=== PATIENT | female | born 1930 | race Caucasian/White ===

== ENCOUNTER 2017-05-10 22:02 | Inpatient (IN) | payer OTHER ==
[~2017-05-10] VITALS: Ht 162.6 cm; Wt 97.7 kg
[~2017-05-10 22:02] MED LIST: ACET-1311 PO; HMLI SC; HYDR25TA4 PO; INSUINJ4 SQ; LISI-792 PO; LORA-741 PO; MULT-513 PO; OXYC-57 PO; OXYC1CAP5 PO; PANT1TAB48 PO; REPA2TAB13 PO; SIMV40TA4 PO
[2017-05-10] MEDS ORDERED: SODIUM CHLORIDE 0.9% 1000ML 1,000 ML IV SCH (22:10)
[2017-05-10] MEDS ORDERED: NiCARDipine IV 25 MG in SODIUM CHLORIDE 0.9% 250ML 240 ML IV STA (22:10)
--- NOTE | 2017-05-10 22:32 | DIAGNOSTIC IMAGING REPORT ---
HEAD WITHOUT CONTRAST (CT) CLINICAL HISTORY: 86 years-old Female with Pt c/o AMS, HTN. Acute altered mental status with hypertension. TECHNIQUE: Multiple axial CT images of the head were obtained without contrast. A dose lowering technique was utilized adhering to the principles of ALARA. CT DOSE: 623.48 mGy.cm COMPARISON: None. FINDINGS: No acute intracranial hemorrhage, midline shift, mass, large territorial ischemia or abnormal extra-axial collection. Moderate atrophy with ex vacuo ventriculomegaly. Ill-defined areas of low attenuation within the periventricular white matter suggests chronic microvascular ischemic changes. The calvarium is intact. Large bilateral mastoid effusions are noted with complete opacification on the right. Large amount of fluid within the right middle ear cavity is noted. Paranasal sinuses are generally clear. Soft tissues are unremarkable. IMPRESSION: 1. Age-related findings without acute intracranial abnormality. 2. Large bilateral mastoid effusions, right greater than left with fluid also present within the right middle ear cavity. Correlate clinically to exclude otomastoiditis. The above report was generated using voice recognition software. It may contain grammatical, syntax or spelling errors. Electronically signed by: Gurvinder Vyas M.D. 05/10/2017 10:30 PM Dictated Date/Time: 05/10/2017 10:27 PM
[2017-05-10] MEDS ORDERED: PRLSR20 PO (22:43)
[2017-05-10] MEDS ORDERED: DOCU100C31 PO (22:43)
[2017-05-10] MEDS ORDERED: MCRK20 PO (22:43)
[2017-05-10] MEDS ORDERED: ASPI325T39 PO (22:43)
[2017-05-10] MEDS ORDERED: INSDGIPEN SC ×2 (22:43)
[2017-05-10] MEDS ORDERED: DTRSR4 PO (22:43)
[2017-05-10] MEDS ORDERED: FURO-85 PO (22:43)
[2017-05-10 22:49] LABS: BASO % 0.1 %; BASO ABS # 0.02 K/uL (0-0.2); COMPLETE YES; EOS % 0.5 %; HEMATOCRIT 41.4 % (37-47); IG% 0.4 %; LYMPH % 16.6 %; LYMPH ABS # 2.36 K/uL (1.2-3.4); MEAN CELL VOLUME 91.8 fL (80-100); MEAN CORPUSCULAR HEMOGLOBIN 30.6 pg (25-34); MEAN CORPUSCULAR HGB CONC 33.3 g/dl (32-36); MEAN PLATELET VOLUME 10.8 fL (7.4-10.4); MONO % 6.6 %; NEUT % 75.8 %; PLATELET COUNT 234 K/uL (130-400); RED BLOOD COUNT 4.51 M/uL (4.2-5.4)
[2017-05-10 23:03] LABS: INR 1.1 (0.9-1.1); PROTHROMBIN TIME (PATIENT) 11.3 SECONDS (9.0-12.0)
[2017-05-10 23:07] LABS: BLOOD UREA NITROGEN 23 mg/dl (7-18); BUN/CREATININE RATIO 17.2 (10-20); CALCIUM 8.8 mg/dl (8.5-10.1); CARBON DIOXIDE 26 mmol/L (21-32); CHLORIDE 102 mmol/L (98-107); CREATININE 1.36 mg/dl (0.60-1.20); GLUCOSE 203 mg/dl (70-99); POTASSIUM 4.9 mmol/L (3.5-5.1); SODIUM 134 mmol/L (136-145)
[2017-05-10 23:13] LABS: CKMB/CK RATIO 1.7 (0-3.0)
[2017-05-10] MEDS ORDERED: PIPERACILLIN/TAZOBACTAM 4.5 GM/100ML D5W IV STA (23:14)
[2017-05-10] MEDS ORDERED: LEVAQUIN 750MG / 150ML D5W IV STA (23:14)
--- NOTE | 2017-05-10 23:25 | EMERGENCY ROOM VISIT NOTE ---
History Report prepared by Prema: Concha Tuttle Under the Supervision of: Dr. Emiliano Espitia M.D. First contact with patient: 22:07 Chief Complaint: ALTERED MENTAL STATUS Stated Complaint: ALTERED MENTAL STATUS, CONFUSION, HEADACHE Nursing Triage Summary: patient brought in by ems patient found at 1630 with severe ROWLEY and confusion patient had worsening symptoms at 1830 History of Present Illness The patient is a 86 year old female who presents to the Emergency Room with complaints of a worsening altered mental status. She was brought to the ED via EMS. Her family reports she has been confused since 1529 today. Around 0, she started complaining of a severe headache. Around 1829, her symptoms worsened , so her family called EMS. Additional information is unable to be obtained secondary to patients current condition. Source of History: patient, family, EMS History Limited By: AMS Onset: 1530 this evening Position: other (global) Timing: worsening Associated Symptoms: + headache Review of Systems See HPI for pertinent positives & negatives. A total of 10 systems reviewed and were otherwise negative. Past Medical & Surgical Medical Problems: (1) Benign hypertension (2) Cholecystectomy (3) Chronic congestive heart failure (4) Depression (5) Diabetes mellitus (6) Hyperlipidemia (7) Myocardial infarction (8) renal disease Social History Smoking Status: Never Smoker Alcohol Use: none Drug Use: none Marital Status: Housing Status: lives alone Occupation Status: retired Current/Historical Medications Scheduled Aspirin (Aspirin Ec), 325 MG PO DAILY Docusate Sodium (Docusate Sodium), 100 MG PO BID Insulin Glargine (Lantus Solostar), 16 UNITS SC QAM Insulin Glargine (Lantus Solostar), 18 UNITS SC QPM Lisinopril (Zestril), 20 MG PO DAILY Multivitamins/Minerals (Mvi With Minerals), 1 TAB PO DAILY Omeprazole (Prilosec), 20 MG PO DAILY Potassium Chloride (Klor-Con M20), 20 MEQ PO DAILY Repaglinide (Prandin), 4 MG PO AC Simvastatin (Zocor), 40 MG PO QPM Tolterodine Tartrate (Detrol LA), 4 MG PO DAILY Scheduled PRN Acetaminophen (Tylenol), 650 MG PO Q4H PRN Furosemide (Lasix), 20 MG PO DAILY PRN for PRN Lorazepam (Ativan), 0.5 MG PO Q6H PRN Allergies Coded Allergies: No Known Allergies (Verified , 01/21/13) Physical Exam Vital Signs Date Time Temp Pulse Resp B/P (MAP) Pulse Ox O2 Delivery O2 Flow Rate FiO2 05/10/17 23:33 109 18 145/67 93 Room Air 05/10/17 22:46 173/82 05/10/17 22:36 94 Room Air 05/10/17 22:33 36.8 105 18 202/98 93 Room Air 05/10/17 22:24 102 Physical Exam GENERAL: Patient is a healthy-appearing well-nourished 86 year old female HEAD: Normocephalic atraumatic EYES: Ocular movements intact pupils equal and react to light OROPHARYNX mucous membranes are moist no exudates present no erythema or edema present NECK: Supple no nuchal rigidity CHEST: Good equal expansion LUNGS: Clear and equal to auscultation CARDIAC: Normal S1 and S2 ABDOMEN: Soft nontender no guarding BACK: No CVA tenderness EXTREMITIES: No pain upon palpation normal muscle strength in all groups no clubbing cyanosis or edema NEURO: Patient is confused, garbles words, only follows commands after multiple directions. Cranial Nerves 2-12 grossly intact Medical Decision & Procedures ER Provider Diagnostic Interpretation: Radiology results as stated below per my review and interpretation: CHEST X-RAY, 1 VIEW Hazy opacity at right lower lung base. No pneumothorax. No evidence of congestion. Laboratory Results Test 05/10/17 22:31 05/10/17 22:37 05/10/17 23:20 Bedside Prothrombin Time INR 1.0 (0.9-1.1) Prothrombin Time 11.3 SECONDS (9.0-12.0) Prothromb Time International Ratio 1.1 (0.9-1.1) Activated Partial Thromboplast Time 26.1 SECONDS (21.0-31.0) Partial Thromboplastin Ratio 1.0 Total Creatine Kinase 52 U/L (26-192) Creatine Kinase MB 0.9 ng/ml (0.5-3.6) Creatine Kinase MB Ratio 1.7 (0-3.0) Troponin I < 0.015 ng/ml (0-0.045) Thyroid Stimulating Hormone (TSH) 1.450 uIu/ml (0.300-4.500) Lyme Disease IgG Antibody NEG (NEG) Lyme Disease IgM Antibody NEG (NEG) Urine Color YELLOW Urine Appearance CLEAR (CLEAR) Urine pH 8.0 (4.5-7.5) Urine Specific [place] 1.008 (1.000-1.030) Urine Protein NEG (NEG) Urine Glucose (UA) NEG (NEG) Urine Ketones NEG (NEG) Urine Occult Blood NEG (NEG) Urine Nitrite NEG (NEG) Urine Bilirubin NEG (NEG) Urine Urobilinogen NEG (NEG) Urine Leukocyte Esterase NEG (NEG) Labs reviewed by ED physician. Medications Administered Medications (Trade) Dose Ordered Sig/[place] Route Start Time Stop Time Status Last Admin Dose Admin Sodium Chloride 1,000 ml @ 50 mls/hr Q20H IV 05/10/17 22:10 05/11/17 01:43 DC 05/10/17 22:54 50 MLS/HR Nicardipine HCl 25 mg/Sodium Chloride 250 ml @ 0 mls/hr Q0M STAT IV 05/10/17 22:10 05/10/17 22:11 DC 05/10/17 22:57 5 MLS/HR Piperacillin Sod/ Tazobactam Sod (Zosyn Iv) 4.5 gm NOW STAT IV 05/10/17 23:14 05/10/17 23:15 DC 05/11/17 00:51 4.5 GM Levofloxacin (Levaquin / D5W) 750 mg NOW STAT IV 05/10/17 23:14 05/10/17 23:15 DC 05/11/17 00:51 750 MG ECG Indication: altered mental status Rate (beats per minute): 102 Rhythm: sinus tachycardia Findings: no acute ischemic change, no ectopy ED Course 2204: Past medical records reviewed. The patient was evaluated in room C2. A complete history and physical examination was performed. 2210: Nicardipine HCl 25 mg/NSS 250 ml @ 0 mls/hr IV, NSS 1000 ml @ 25 mls/hr IV. 2314: Levaquin 750 mg IV, Zosyn 4.5 gm IV. 2326: I discussed the patients case with Dr. Vega, [facility] Hospitalist. The patient will be further evaluated. Medical Decision Prior records/ancillary studies reviewed. Triage Nursing notes reviewed. Additional history obtained from the patients family. The patient's history was concerning for abdominal pain. Differential diagnosis: Etiologies such as appendicitis, diverticulitis, PUD, biliary pathology, UTI, pancreatitis, obstruction, mesenteric ischemia, aortic pathology, infections, inflammatory bowel disease, renal colic, as well as others were entertained. This is an 86-year-old female who presents emergency department acutely confused. Her blood pressures grossly elevated. For this reason the patient was started on a nicardipine drip. Repeat examination revealed much improvement the patient's symptoms. The patient was sent for CAT scan of the head which did not show any evidence of acute process. There is concern over odomastoiditis however there is no pain to palpation to the patient's ears jaw or skull. I did discuss the case with the hospitalist service who agreed to admit the patient. Medication Reconcilliation Current Medication List: was personally reviewed by me Blood Pressure Screening Patient's blood pressure: Elevated blood pressure The patients elevated blood pressure will be further evaluated by the hospital medicine team Consults Time Called: 2321 Consulting Physician: Stacie Walker Hospitalist Returned Call: [phone] I discussed the patients case with Stacie Walker. The patient will be further evaluated. Impression Primary Impression: Altered mental status Additional Impression: Hypertensive emergency Scribe Attestation The scribe's documentation has been prepared under my direction and personally reviewed by me in its entirety. I confirm that the note above accurately reflects all work, treatment, procedures, and medical decision making performed by me. Departure Information Dispostion Being Evaluated By Hospitalist Referrals Harjit Adler M.D. (PCP) Patient Instructions My [facility] Problem Qualifiers Primary Impression: Altered mental status Altered mental status type: unspecified Qualified Codes: R41.82 - Altered mental status, unspecified
--- NOTE | 2017-05-10 23:42 | History and Physical ---
History & Physical Date & Time of Service: May 10, 2017 at 23:42 Chief Complaint: Altered Mental Status, Confusion, Headache Primary Care Physician: Harjit Adler M.D. History of Present Illness Source: patient, family, hospital records Patient is an 86 Yr female with PMH of DM II, HLP, CKD III, PUD S/P partial gastrectomy in , HTN, depression and Atypical Psychosis as per records presents with history of altered mental status. History is limited secondary to patient's mental status. As per the patient's son and ED staff, patient was noticed to be confused at around 3pm today. Patient complained of severe headache and she took Ibuprofen which helped with headache as per patient's son. Later, she seemed to be more confused and also complained of neck pain. Patient's son reports that he checked blood sugar and it was 259. She had a UTI 1 week ago and completed antibiotics as per family. No known history of head trauma, fall, LOC, Insect bite, fever, chills, nausea, vomiting, abd pain, diarrhea , no recent travel, change in meds. Currently while in ED patient continues to be confused but follows simple commands and is oriented to person. She was found to have Hypertensive Urgency, Tachycardia, leukocytosis and complains of neck pain but there is no neck stiffness on exam. CT head showed large bilateral mastoid effusions, R>L and fluid in right middle ear cavity suggestive of possible otomastoiditis. Past Medical/Surgical History Medical Problems: (1) Benign hypertension Status: Chronic (2) Cholecystectomy Status: Resolved (3) Chronic congestive heart failure Status: Chronic (4) Depression Status: Chronic (5) Diabetes mellitus Status: Chronic (6) Hyperlipidemia Status: Chronic (7) Myocardial infarction Status: Chronic (8) renal disease Status: Chronic Family History could not be obtained secondary to encephalopathy Social History Smoking Status: Never Smoker Alcohol Use: none Drug Use: none Marital Status: Occupational Status: retired Multi-Drug Resistant Organisms History of MDRO: No Allergies Coded Allergies: No Known Allergies (Verified , 01/21/13) Home Medications Scheduled Aspirin (Aspirin Ec), 325 MG PO DAILY Docusate Sodium (Docusate Sodium), 100 MG PO BID Insulin Glargine (Lantus Solostar), 16 UNITS SC QAM Insulin Glargine (Lantus Solostar), 18 UNITS SC QPM Lisinopril (Zestril), 20 MG PO DAILY Multivitamins/Minerals (Mvi With Minerals), 1 TAB PO DAILY Omeprazole (Prilosec), 20 MG PO DAILY Potassium Chloride (Klor-Con M20), 20 MEQ PO DAILY Repaglinide (Prandin), 4 MG PO AC Simvastatin (Zocor), 40 MG PO QPM Tolterodine Tartrate (Detrol LA), 4 MG PO DAILY Scheduled PRN Acetaminophen (Tylenol), 650 MG PO Q4H PRN Furosemide (Lasix), 20 MG PO DAILY PRN for PRN Lorazepam (Ativan), 0.5 MG PO Q6H PRN Review of Systems could not be obtained secondary to encephalopathy Physical Exam Vital Signs Date Time Temp Pulse Resp B/P (MAP) Pulse Ox O2 Delivery O2 Flow Rate FiO2 05/10/17 23:33 109 18 145/67 93 Room Air 05/10/17 22:46 173/82 05/10/17 22:36 94 Room Air 05/10/17 22:33 36.8 105 18 202/98 93 Room Air 05/10/17 22:24 102 General Appearance: WD/WN, no apparent distress, + pertinent finding (Confused , complains of neck pain, follows simple commands) Head: normocephalic, atraumatic Eyes: normal inspection, PERRL, EOMI ENT: hearing grossly normal Neck: supple, trachea midline, + pertinent finding (No neck stiffness) Respiratory/Chest: chest non-tender, lungs clear, no respiratory distress, no accessory muscle use, + decreased breath sounds Cardiovascular: regular rate, rhythm, no murmur, + tachycardia, + pertinent finding (1+ b/l edema) Abdomen/GI: normal bowel sounds, non tender, soft Back: normal inspection Extremities/Musculoskelatal: normal inspection, + pertinent finding (1+ b/l edema in stockings) Neurologic/Psych: alert, + pertinent finding (moves all extremities, grossly no focal deficits, but exam is limited secondary to encepalopathy, oriented only to person) Skin: normal color, warm/dry Diagnostics Laboratory Results Results Past 24 Hours Test 05/10/17 22:28 05/10/17 22:31 05/10/17 22:37 05/10/17 23:20 Range/Units Bedside Glucose 194 70-90 mg/dl Bedside Prothrombin Time INR 1.0 0.9-1.1 White Blood Count 14.20 4.8-10.8 K/uL Red Blood Count 4.51 4.2-5.4 M/uL Hemoglobin 13.8 12.0-16.0 g/dL Hematocrit 41.4 37-47 % Mean Corpuscular Volume 91.8 80-100 fL Mean Corpuscular Hemoglobin 30.6 25-34 pg Mean Corpuscular Hemoglobin Concent 33.3 32-36 g/dl Platelet Count 234 130-400 K/uL Mean Platelet Volume 10.8 7.4-10.4 fL Neutrophils (%) (Auto) 75.8 % Lymphocytes (%) (Auto) 16.6 % Monocytes (%) (Auto) 6.6 % Eosinophils (%) (Auto) 0.5 % Basophils (%) (Auto) 0.1 % Neutrophils # (Auto) 10.75 1.4-6.5 K/uL Lymphocytes # (Auto) 2.36 1.2-3.4 K/uL Monocytes # (Auto) 0.94 0.11-0.59 K/uL Eosinophils # (Auto) 0.07 0-0.5 K/uL Basophils # (Auto) 0.02 0-0.2 K/uL RDW Standard Deviation 41.0 36.4-46.3 fL RDW Coefficient of Variation 12.1 11.5-14.5 % Immature Granulocyte % (Auto) 0.4 % Immature Granulocyte # (Auto) 0.06 0.00-0.02 K/uL Prothrombin Time 11.3 9.0-12.0 SECONDS Prothromb Time International Ratio 1.1 0.9-1.1 Activated Partial Thromboplast Time 26.1 21.0-31.0 SECONDS Partial Thromboplastin Ratio 1.0 Sodium Level 134 136-145 mmol/L Potassium Level 4.9 3.5-5.1 mmol/L Chloride Level 102 98-107 mmol/L Carbon Dioxide Level 26 21-32 mmol/L Anion Gap 6.0 3-11 mmol/L Blood Urea Nitrogen 23 7-18 mg/dl Creatinine 1.36 0.60-1.20 mg/dl Est Creatinine Clear Calc Drug Dose 34.0 ml/min Estimated GFR () 40.5 Estimated GFR (Non- 34.9 BUN/Creatinine Ratio 17.2 10-20 Random Glucose 203 70-99 mg/dl Calcium Level 8.8 8.5-10.1 mg/dl Total Creatine Kinase 52 26-192 U/L Creatine Kinase MB 0.9 0.5-3.6 ng/ml Creatine Kinase MB Ratio 1.7 0-3.0 Troponin I < 0.015 0-0.045 ng/ml Microbiology Results 05/10/17 Blood Culture, Ordered Pending 05/10/17 Blood Culture, Ordered Pending Diagnostic Radiology CT head: 1. Age-related findings without acute intracranial abnormality. 2. Large bilateral mastoid effusions, right greater than left with fluid also present within the right middle ear cavity. Correlate clinically to exclude otomastoiditis. EKG EKG: Sinus Tachycardia, 1st degree AV block Impression Assessment and Plan Encephalopathy: Unclear etiology. Presented with confusion, leukocytosis, headache and neck pain DD:Meningitis/encephalitis/drug induced/ ? Sepsis/H/O Psychosis/ Seizure CT head: showed possible otomastoiditis. Will start on broad spectrum IV antibiotics/antiviral check MRI head, EEG Neuro checks Will consulted Neurology May need LP if clinically warranted Will hold Lorazepam and Detrol for now Blood cultures UA: normal Lyme negative check TSH, B12 Hypertensive Urgency: Treated with Nicardipine ggt in ED BP improved Continue lisinopril monitor DM II Will hold oral diabetic meds Last A1c:6.3 on 05/03/17 ISS, basal Insulin, Accu checks, Diabetic diet HLP: continue zocor CKD III: Cr:1.36 at baseline Monitor renal function H/O PUD S/P partial gastrectomy in 1970s continue PPI H/O Depression and Atypical Psychosis Hold Lorazepam secondary to AMS Overactive Bladder; Hold Detrol for now DVT Px: SCDs for now Code Status: Full Code as per my discussion with patient's son
[2017-05-10 23:43] LABS: URINE APPEARANCE CLEAR (CLEAR); URINE BILIRUBIN NEG (NEG); URINE COLOR YELLOW; URINE NITRITE NEG (NEG); URINE SPECIFIC GRAVITY 1.008 (1.000-1.030); UROBILINOGEN NEG (NEG); ZZUR CULT IF INDIC CLEAN CATCH NO
[2017-05-10 23:49] LABS: MANUAL MICROSCOPIC REQUIRED? NO; REVIEW REQ? NO
[2017-05-11] VITALS (7 sets, daily range): BP systolic 139–166; BP diastolic 78–84; PULSE 80–122; TEMP 36.6–37.1; O2SAT 92–96; Ht 162.6 cm; Wt 97.7 kg
[2017-05-11] MEDS ORDERED: GLUCOSE 40% GEL 15 GM TUBE PO PRN (00:30)
[2017-05-11] MEDS ORDERED: GLUCOSE 10 TABS/TUBE PO PRN (00:30)
[2017-05-11] MEDS ORDERED: DEXTROSE 50% 50 ML SYR IV PRN (00:30)
[2017-05-11] MEDS ORDERED: GLUCAGON FOR INJ 1 MG VIAL SQ PRN (00:30)
[2017-05-11] MEDS ORDERED: ONDANSETRON INJ 2 MG/ML 2 ML VIAL IV PRN (00:30)
[2017-05-11] MEDS ORDERED: LABETALOL HCL IV 5 MG/ML 20ML IV PRN (00:30)
[2017-05-11] MEDS ORDERED: VANCOMYCIN CONSULT ACTIVE PRN (01:03)
[2017-05-11] MEDS ORDERED: PIPERACILL/TAZOBAC CONSULT ACTIVE PRN (01:15)
[2017-05-11 01:25] LABS: LYME DISEASE AB IGG NEG (NEG); LYME DISEASE AB IGM NEG (NEG)
[2017-05-11] MEDS ORDERED: VANCOMYCIN INJ 2,250 MG in SODIUM CHLORIDE 0.9% 500ML 500 ML IV SCH (02:00)
[2017-05-11] MEDS: SODIUM CHLORIDE 0.9% 1000ML 1,000 ML IV SCH (02:38)
[2017-05-11] MEDS ORDERED: AMPICILLIN PHARMACY CONSULT IN PROGRESS PRN (02:45)
[2017-05-11] MEDS ORDERED: ACYCLOVIR CONSULT ACTIVE PRN (03:00)
[2017-05-11] MEDS: CEFTRIAXONE SOD INJ 2000 MG in DEXTROSE 5% 50ML IV SCH ×2 (03:05→17:53)
[2017-05-11] MEDS: AMPICILLIN IV 2,000 MG in SODIUM CHLOR 0.9% AD-VAN 100ML 100 ML IV SCH ×5 (04:01→22:18)
[2017-05-11] MEDS ORDERED: PIPERACILL/TAZOBAC IV 4.5 GM in DEXTROSE 5% 100ML IV SCH (06:00)
[2017-05-11] MEDS: ACYCLOVIR SOD INJ 550 MG in DEXTROSE 5% 100ML 100 ML IV SCH ×2 (06:20→17:53)
--- NOTE | 2017-05-11 06:35 | DIAGNOSTIC IMAGING REPORT ---
CHEST ONE VIEW PORTABLE CLINICAL HISTORY: Stroke. COMPARISON STUDY: Chest radiograph March 16, 2013. FINDINGS: Right shoulder arthroplasty is noted. There is no pneumothorax. Moderate cardiomegaly is unchanged. There is no evidence of pulmonary edema. Mild right basilar opacity is present. Apparent hazy left basilar opacity is unchanged. IMPRESSION: 1. Mild right basilar opacity which favors atelectasis although consolidation could appear similar. 2. Stable cardiomegaly without evidence of pulmonary edema. Electronically signed by: Shar Mayes M.D. 05/11/2017 6:34 AM Dictated Date/Time: 05/11/2017 6:33 AM
[2017-05-11] MEDS: ASPIRIN 325 MG ECTAB PO SCH (07:58)
[2017-05-11] MEDS: LISINOPRIL 20 MG TAB PO SCH (07:59)
[2017-05-11] MEDS: PANTOprazole SOD 40 MG TAB PO SCH (07:59)
[2017-05-11] MEDS: DOCUSATE SODIUM 100 MG CAP PO SCH ×2 (07:59→19:34)
[2017-05-11] MEDS: INSULIN ASPART 100 UNITS/ML 3 ML PEN SC SCH ×4 (08:01→20:33)
[2017-05-11] MEDS: INSULIN GLARGINE SOLOSTAR 100 UNITS/ML 3 ML PEN SC SCH ×2 (08:05→20:33)
--- NOTE | 2017-05-11 10:43 | Pharmacy Progress Note ---
Pharmacy Antibiotic Consult Date of Service: May 11, 2017. Pharmacy Dosing Scope Pharmacy is consulted to initiate Vancomycin, ampicillin, ceftriaxone and acyclovir IV empiric dosing therapy for meningitis, order appropriate labs and adjust drug dose/frequency. Subjective The patient is a 86 year old female admitted on May 11, 2017 at 00:23. Presented to the ED with altered mental status, confusion and severe headache. Objective Height (Feet): 5 Height (Inches): 4.00 Weight (Kilograms): 95.500 Lab Results (24hrs): Test 05/10/17 22:28 05/10/17 22:31 05/10/17 22:37 05/10/17 23:20 Bedside Glucose 194 mg/dl (70-90) Bedside Prothrombin Time INR 1.0 (0.9-1.1) White Blood Count 14.20 K/uL (4.8-10.8) Red Blood Count 4.51 M/uL (4.2-5.4) Hemoglobin 13.8 g/dL (12.0-16.0) Hematocrit 41.4 % (37-47) Mean Corpuscular Volume 91.8 fL (80-100) Mean Corpuscular Hemoglobin 30.6 pg (25-34) Mean Corpuscular Hemoglobin Concent 33.3 g/dl (32-36) Platelet Count 234 K/uL (130-400) Mean Platelet Volume 10.8 fL (7.4-10.4) Neutrophils (%) (Auto) 75.8 % Lymphocytes (%) (Auto) 16.6 % Monocytes (%) (Auto) 6.6 % Eosinophils (%) (Auto) 0.5 % Basophils (%) (Auto) 0.1 % Neutrophils # (Auto) 10.75 K/uL (1.4-6.5) Lymphocytes # (Auto) 2.36 K/uL (1.2-3.4) Monocytes # (Auto) 0.94 K/uL (0.11-0.59) Eosinophils # (Auto) 0.07 K/uL (0-0.5) Basophils # (Auto) 0.02 K/uL (0-0.2) RDW Standard Deviation 41.0 fL (36.4-46.3) RDW Coefficient of Variation 12.1 % (11.5-14.5) Immature Granulocyte % (Auto) 0.4 % Immature Granulocyte # (Auto) 0.06 K/uL (0.00-0.02) Prothrombin Time 11.3 SECONDS (9.0-12.0) Prothromb Time International Ratio 1.1 (0.9-1.1) Activated Partial Thromboplast Time 26.1 SECONDS (21.0-31.0) Partial Thromboplastin Ratio 1.0 Sodium Level 134 mmol/L (136-145) Potassium Level 4.9 mmol/L (3.5-5.1) Chloride Level 102 mmol/L (98-107) Carbon Dioxide Level 26 mmol/L (21-32) Anion Gap 6.0 mmol/L (3-11) Blood Urea Nitrogen 23 mg/dl (7-18) Creatinine 1.36 mg/dl (0.60-1.20) Est Creatinine Clear Calc Drug Dose 34.0 ml/min Estimated GFR () 40.5 Estimated GFR (Non- 34.9 BUN/Creatinine Ratio 17.2 (10-20) Random Glucose 203 mg/dl (70-99) Calcium Level 8.8 mg/dl (8.5-10.1) Total Creatine Kinase 52 U/L (26-192) Creatine Kinase MB 0.9 ng/ml (0.5-3.6) Creatine Kinase MB Ratio 1.7 (0-3.0) Troponin I < 0.015 ng/ml (0-0.045) Thyroid Stimulating Hormone (TSH) 1.450 uIu/ml (0.300-4.500) Lyme Disease IgG Antibody NEG (NEG) Lyme Disease IgM Antibody NEG (NEG) Urine Color YELLOW Urine Appearance CLEAR (CLEAR) Urine pH 8.0 (4.5-7.5) Urine Specific [place] 1.008 (1.000-1.030) Urine Protein NEG (NEG) Urine Glucose (UA) NEG (NEG) Urine Ketones NEG (NEG) Urine Occult Blood NEG (NEG) Urine Nitrite NEG (NEG) Urine Bilirubin NEG (NEG) Urine Urobilinogen NEG (NEG) Urine Leukocyte Esterase NEG (NEG) Test 05/11/17 06:11 05/11/17 06:44 Vitamin B12 Level 385 pg/mL (211-911) Bedside Glucose 122 mg/dl (70-90) Micro Results: Item Value Date Time Blood Culture Received 05/11/17 0032 Blood Pending Blood Culture Received 05/11/17 0023 Blood Pending Recent Pertinent Medications Item Value Date Time Acyclovir Sodium 111 ml @ 100 mls/hr 05/11/17 0600 550 mg/Dextrose Q12H/IV 05/11/17 0620 Ampicillin Sodium 108 ml @ 216 mls/hr 05/11/17 0400 2000 mg/Sodium Q6H/IV 05/11/17 0805 Chloride Ceftriaxone 70 ml @ 140 mls/hr 05/11/17 0300 Sodium 2000 mg/ Q12H/IV 05/11/17 0305 Dextrose Vancomycin HCl 545 ml @ 200 mls/hr 05/11/17 0200 2250 mg/Sodium TODAY@0200/IV 05/11/17 0239 Chloride Levofloxacin 750 mg 05/10/17 2314 (Levaquin / D5W) NOW STAT/IV 05/11/17 0051 Piperacillin Sod/ 4.5 gm 05/10/17 2314 Tazobactam Sod NOW STAT/IV 05/11/17 0051 (Zosyn Iv) Assessment & Plan Duration of therapy is 48hours for empiric treatment of possible meningitis. Vancomycin Loading dose: 2250 mg IV (22.6 mg/kg) X 1 dose then: * Vancomycin 1500 mg IV (15mg/kg) every 24 hours. * Goal peak level estimate: between 30 - 40 mcg/mL. * Goal trough level estimate: between 15 - 20 mcg/mL. * No levels ordered at this time. * Vanco trough level will need to be ordered if therapy is extended. Ampicillin 2 gm IV q 6 hours Rocephin 2gm IV q 12 hours Acyclovir 550mg IV q 12 hours. * Dosing is based on IBW and a CrCl of 38 ml/min Pharmacy will continue to follow and will adjust dose/frequency as necessary. Thank you
--- NOTE | 2017-05-11 11:38 | EEG Procedure Note ---
EEG Procedure Note Date of Service May 11, 2017. Start / End Times Start Time: 8:03 AM End Time: 8:[address] Peraza History This is a 86-year-old female with altered mental status and confusion. EEG for further evaluation of possible seizure etiology. Home Medication List Scheduled Aspirin (Aspirin Ec), 325 MG PO DAILY Docusate Sodium (Docusate Sodium), 100 MG PO BID Insulin Glargine (Lantus Solostar), 16 UNITS SC QAM Insulin Glargine (Lantus Solostar), 18 UNITS SC QPM Lisinopril (Zestril), 20 MG PO DAILY Multivitamins/Minerals (Mvi With Minerals), 1 TAB PO DAILY Omeprazole (Prilosec), 20 MG PO DAILY Potassium Chloride (Klor-Con M20), 20 MEQ PO DAILY Repaglinide (Prandin), 4 MG PO AC Simvastatin (Zocor), 40 MG PO QPM Tolterodine Tartrate (Detrol LA), 4 MG PO DAILY Scheduled PRN Acetaminophen (Tylenol), 650 MG PO Q4H PRN Furosemide (Lasix), 20 MG PO DAILY PRN for PRN Lorazepam (Ativan), 0.5 MG PO Q6H PRN Inpatient Medication List Current Inpatient Medications Medications (Trade) Dose Ordered Sig/Tawny Route Start Time Stop Time Status Last Admin Dose Admin Sodium Chloride 1,000 ml @ 50 mls/hr Q20H IV 05/11/17 01:43 06/10/17 01:42 05/11/17 02:38 50 MLS/HR Acetaminophen (Tylenol Tab) 650 mg Q4H PRN PO 05/11/17 00:30 06/10/17 00:29 Ondansetron HCl (Zofran Inj) 4 mg Q6H PRN IV 05/11/17 00:30 06/10/17 00:29 Insulin Glargine (Lantus Solostar Pen) 5 units Q12 SC 05/11/17 09:00 06/10/17 08:59 05/11/17 08:05 5 UNITS Insulin Aspart (novoLOG ASPART) SLIDING SCALE If C... ACHS SC 05/11/17 07:00 06/10/17 06:59 Glucose (Glucose 40% Gel) 15-30 GRAMS 15 GRAMS... UD PRN PO 05/11/17 00:30 06/10/17 00:29 Glucose (Glucose Chew Tab) 4-8 Tablets 4 Tabl... UD PRN PO 05/11/17 00:30 06/10/17 00:29 Dextrose (Dextrose 50% 50ML Syringe) 25-50ML OF 50% DW IV FOR... UD PRN IV 05/11/17 00:30 06/10/17 00:29 Glucagon (Glucagon Inj) 1 mg UD PRN SQ 05/11/17 00:30 06/10/17 00:29 Labetalol HCl (Normodyne IV) 10 mg Q6H PRN IV 05/11/17 00:30 06/10/17 00:29 Aspirin (Ecotrin Tab) 325 mg DAILY PO 05/11/17 09:00 06/10/17 08:59 05/11/17 07:58 325 MG Docusate Sodium (coLACE CAP) 100 mg BID PO 05/11/17 09:00 06/10/17 08:59 05/11/17 07:59 100 MG Lisinopril (Zestril Tab) 20 mg DAILY PO 05/11/17 09:00 06/10/17 08:59 05/11/17 07:59 20 MG Simvastatin (Zocor Tab) 40 mg QPM PO 05/11/17 21:00 06/10/17 20:59 Pantoprazole Sodium (Protonix Tab) 40 mg QAM PO 05/11/17 09:00 06/10/17 08:59 05/11/17 07:59 40 MG Vancomycin HCl (Consult) 1 ea DAILY PRN N/A 05/11/17 01:03 06/10/17 01:02 Ampicillin Sodium 2000 mg/Sodium Chloride 108 ml @ 216 mls/hr Q6H IV 05/11/17 04:00 05/13/17 03:59 05/11/17 08:05 216 MLS/HR Miscellaneous Information 1 ea UD PRN N/A 05/11/17 02:45 06/10/17 02:44 Ceftriaxone Sodium 2000 mg/ Dextrose 70 ml @ 140 mls/hr Q12H IV 05/11/17 03:00 05/13/17 02:59 05/11/17 03:05 140 MLS/HR Acyclovir Sodium 550 mg/Dextrose 111 ml @ 100 mls/hr Q12H IV 05/11/17 06:00 05/13/17 05:59 05/11/17 06:20 100 MLS/HR Acyclovir Sodium (Consult) 1 ea UD PRN N/A 05/11/17 03:00 06/10/17 02:59 Vancomycin HCl 1500 mg/Sodium Chloride 530 ml @ 200 mls/hr Q24H IV 05/11/17 21:00 05/13/17 02:30 Description This is a 21 electrode EEG with a single channel dedicated to limited EKG. The electrodes were placed in accordance with the International 10-20 system. At the start of the recording the patient was in reported altered mental status. Background was well organized and composed of symmetric mixed alpha and beta frequencies. There was a symmetric well-formed moderate amplitude 10-11 Hz posterior dominant rhythm that was reactive to eye opening and closure. Hyperventilation was not done. Intermittent photic stimulation at various frequencies produced no abnormalities. Drowsiness was indicated by loss of muscle artifact, slowing of background rhythm, and vertex waves. There was no stage II sleep transients. Interpretation This is a normal awake and drowsy routine EEG. There was no electrographic seizures or epileptiform discharges. Clinical Correlation A normal EEG does not rule out epilepsy if there is a strong clinical suspicion.
--- NOTE | 2017-05-11 15:03 | Progress Note ---
Internal Med Progress Note Date of Service: May 11, 2017. Provider Documentation: SUBJECTIVE: The patient was seen and examined Pleasantly confused Denies any hallucinations or delusions but admits to have recent memory impairment Feels better and wants to go home OBJECTIVE: Vital Signs-as noted below Exam: General-No distress at rest Eyes-normal ENT-normal Neck-Supple Lungs-Clear to ausucltate bilaterally Decreased breath sound bilaterally Heart-Regular,no murmur appreciated Abdomen-Benign,no masses,bowel sound present Extremities-Trace edema bilaterally Neuro-AA Pleasantly confused Generally weak and lethargic NO focal Neuro deficit No Neck stiffness Lab data as noted below. ASSESSMENT & PLAN: Encephalopathy: Unclear etiology. Presented with confusion, leukocytosis, headache and neck pain DD:Meningitis/encephalitis/drug induced/ Sepsis/H/O Psychosis/ Seizure CT head: showed possible otomastoiditis and no other acute findings. Started on broad spectrum IV antibiotics/antiviral Neuro checks -no acute finding, Doubt any meningitis Hold Lorazepam and Detrol for now Blood cultures-sent UA: normal and CXR did not show any pneumonia Lyme titer negative EEG-Negative MRI -pending Check TSH, [id number] Neurology consulted Clinically better today Repeat CBC,PRP,LFT ,Mg and CXR Hypertensive Urgency: Initially very high 202/98 Treated with Nicardipine ggt in ED BP improved Continue lisinopril DM II Will hold oral diabetic meds Last A1c:6.3 on 05/03/17 ISS, basal Insulin, Accu checks, Diabetic diet HLP: continue Zocor CKD III: Cr:1.36 at baseline Monitor renal function H/O PUD S/P partial gastrectomy in 1970s continue PPI H/O Depression and Atypical Psychosis Hold Lorazepam secondary to AMS May need psychiatry evaluation Overactive Bladder; Hold Detrol for now DVT Px: SCDs for now Code Status: Full Code as per my discussion with patient's son DISPOSITION Awaited Vital Signs: Date Time Temp Pulse Resp B/P (MAP) Pulse Ox O2 Delivery O2 Flow Rate FiO2 05/11/17 12:21 36.6 96 147/84 (105) 96 05/11/17 11:37 Room Air 05/11/17 08:12 36.6 104 22 139/80 (99) 92 Room Air 05/11/17 07:45 Room Air 05/11/17 04:00 Room Air 05/11/17 03:32 36.8 114 20 147/78 (101) 92 Room Air 05/11/17 02:07 37.1 122 22 162/82 93 Room Air 05/11/17 00:55 112 18 120/74 93 Room Air 05/10/17 23:33 109 18 145/67 93 Room Air 05/10/17 22:46 173/82 05/10/17 22:36 94 Room Air 05/10/17 22:33 36.8 105 18 202/98 93 Room Air 05/10/17 22:24 102 Lab Results: Results Past 24 Hours Test 05/10/17 22:28 05/10/17 22:31 05/10/17 22:37 05/10/17 23:20 Range/Units Bedside Glucose 194 70-90 mg/dl Bedside Prothrombin Time INR 1.0 0.9-1.1 White Blood Count 14.20 4.8-10.8 K/uL Red Blood Count 4.51 4.2-5.4 M/uL Hemoglobin 13.8 12.0-16.0 g/dL Hematocrit 41.4 37-47 % Mean Corpuscular Volume 91.8 80-100 fL Mean Corpuscular Hemoglobin 30.6 25-34 pg Mean Corpuscular Hemoglobin Concent 33.3 32-36 g/dl Platelet Count 234 130-400 K/uL Mean Platelet Volume 10.8 7.4-10.4 fL Neutrophils (%) (Auto) 75.8 % Lymphocytes (%) (Auto) 16.6 % Monocytes (%) (Auto) 6.6 % Eosinophils (%) (Auto) 0.5 % Basophils (%) (Auto) 0.1 % Neutrophils # (Auto) 10.75 1.4-6.5 K/uL Lymphocytes # (Auto) 2.36 1.2-3.4 K/uL Monocytes # (Auto) 0.94 0.11-0.59 K/uL Eosinophils # (Auto) 0.07 0-0.5 K/uL Basophils # (Auto) 0.02 0-0.2 K/uL RDW Standard Deviation 41.0 36.4-46.3 fL RDW Coefficient of Variation 12.1 11.5-14.5 % Immature Granulocyte % (Auto) 0.4 % Immature Granulocyte # (Auto) 0.06 0.00-0.02 K/uL Prothrombin Time 11.3 9.0-12.0 SECONDS Prothromb Time International Ratio 1.1 0.9-1.1 Activated Partial Thromboplast Time 26.1 21.0-31.0 SECONDS Partial Thromboplastin Ratio 1.0 Sodium Level 134 136-145 mmol/L Potassium Level 4.9 3.5-5.1 mmol/L Chloride Level 102 98-107 mmol/L Carbon Dioxide Level 26 21-32 mmol/L Anion Gap 6.0 3-11 mmol/L Blood Urea Nitrogen 23 7-18 mg/dl Creatinine 1.36 0.60-1.20 mg/dl Est Creatinine Clear Calc Drug Dose 34.0 ml/min Estimated GFR () 40.5 Estimated GFR (Non- 34.9 BUN/Creatinine Ratio 17.2 10-20 Random Glucose 203 70-99 mg/dl Calcium Level 8.8 8.5-10.1 mg/dl Total Creatine Kinase 52 26-192 U/L Creatine Kinase MB 0.9 0.5-3.6 ng/ml Creatine Kinase MB Ratio 1.7 0-3.0 Troponin I < 0.015 0-0.045 ng/ml Thyroid Stimulating Hormone (TSH) 1.450 0.300-4.500 uIu/ml Lyme Disease IgG Antibody NEG NEG Lyme Disease IgM Antibody NEG NEG Urine Color YELLOW Urine Appearance CLEAR CLEAR Urine pH 8.0 4.5-7.5 Urine Specific [place] 1.008 1.000-1.030 Urine Protein NEG NEG Urine Glucose (UA) NEG NEG Urine Ketones NEG NEG Urine Occult Blood NEG NEG Urine Nitrite NEG NEG Urine Bilirubin NEG NEG Urine Urobilinogen NEG NEG Urine Leukocyte Esterase NEG NEG Test 05/11/17 06:11 05/11/17 06:44 05/11/17 11:14 Range/Units Vitamin B12 Level 385 211-911 pg/mL Bedside Glucose 122 115 70-90 mg/dl Microbiology Results 05/11/17 Blood Culture, Received Pending 05/11/17 Blood Culture, Received Pending
--- NOTE | 2017-05-11 15:30 | Neurology Consultation ---
Neurology Consultation Date of Consultation: May 11, 2017. Attending Physician: Nilton Lucia M.D. Primary Care Physician: Harjit Adler M.D. Reason for Consultation: altered mental status History of Present Illness Source: patient, family, hospital records Rae is an 86 year old female with a PMH of DM II, DL, CKD III, PUD S/P partial gastrectomy in , HTN, depression and Atypical Psychosis. She presented with a mental status change. Son reported to ED staff he found her confused at around 3pm. She is complaining of severe headache and she took Ibuprofen which helped with headache. Son checked her blood sugar was 259. She had a UTI 1 week ago and completed antibiotics. denies falls, change of medications, LOC, fever, N,V, abd pain, diarrhea. She continued to be confused in the ED and didn't know her sons name. She was found to have Hypertensive Urgency, Tachycardia, leukocytosis and complains of neck pain but there is no neck stiffness on exam. CT head showed large bilateral mastoid effusions, R>L and fluid in right middle ear cavity suggestive of possible otomastoiditis. Currently she is able to identify every one in the room including his son. She doesn't know why she was brought in but she understand that she was confused. denies CP, SOB, abdominal pain, one sided numbness weakness, N, V, + neck pain. Past Medical/Surgical History Medical Problems: (1) Altered mental status Status: Acute (2) Hypertensive emergency Status: Acute Social History Smoking Status: Unknown if ever smoked Alcohol Use: none Drug Use: none Marital Status: Housing Status: lives alone Occupation Status: retired Allergies Coded Allergies: No Known Allergies (Verified , 01/21/13) Current Inpatient Medications Current Inpatient Medications Medications (Trade) Dose Ordered Sig/Tawny Route Start Time Stop Time Status Last Admin Dose Admin Sodium Chloride 1,000 ml @ 50 mls/hr Q20H IV 05/11/17 01:43 06/10/17 01:42 05/11/17 02:38 50 MLS/HR Acetaminophen (Tylenol Tab) 650 mg Q4H PRN PO 05/11/17 00:30 06/10/17 00:29 Ondansetron HCl (Zofran Inj) 4 mg Q6H PRN IV 05/11/17 00:30 06/10/17 00:29 Insulin Glargine (Lantus Solostar Pen) 5 units Q12 SC 05/11/17 09:00 06/10/17 08:59 05/11/17 08:05 5 UNITS Insulin Aspart (novoLOG ASPART) SLIDING SCALE If C... ACHS SC 05/11/17 07:00 06/10/17 06:59 Glucose (Glucose 40% Gel) 15-30 GRAMS 15 GRAMS... UD PRN PO 05/11/17 00:30 06/10/17 00:29 Glucose (Glucose Chew Tab) 4-8 Tablets 4 Tabl... UD PRN PO 05/11/17 00:30 06/10/17 00:29 Dextrose (Dextrose 50% 50ML Syringe) 25-50ML OF 50% DW IV FOR... UD PRN IV 05/11/17 00:30 06/10/17 00:29 Glucagon (Glucagon Inj) 1 mg UD PRN SQ 05/11/17 00:30 06/10/17 00:29 Labetalol HCl (Normodyne IV) 10 mg Q6H PRN IV 05/11/17 00:30 06/10/17 00:29 Aspirin (Ecotrin Tab) 325 mg DAILY PO 05/11/17 09:00 06/10/17 08:59 05/11/17 07:58 325 MG Docusate Sodium (coLACE CAP) 100 mg BID PO 05/11/17 09:00 06/10/17 08:59 05/11/17 07:59 100 MG Lisinopril (Zestril Tab) 20 mg DAILY PO 05/11/17 09:00 06/10/17 08:59 05/11/17 07:59 20 MG Simvastatin (Zocor Tab) 40 mg QPM PO 05/11/17 21:00 06/10/17 20:59 Pantoprazole Sodium (Protonix Tab) 40 mg QAM PO 05/11/17 09:00 06/10/17 08:59 05/11/17 07:59 40 MG Vancomycin HCl (Consult) 1 ea DAILY PRN N/A 05/11/17 01:03 06/10/17 01:02 Ampicillin Sodium 2000 mg/Sodium Chloride 108 ml @ 216 mls/hr Q6H IV 05/11/17 04:00 05/13/17 03:59 05/11/17 08:05 216 MLS/HR Miscellaneous Information 1 ea UD PRN N/A 05/11/17 02:45 06/10/17 02:44 Ceftriaxone Sodium 2000 mg/ Dextrose 70 ml @ 140 mls/hr Q12H IV 05/11/17 03:00 05/13/17 02:59 05/11/17 03:05 140 MLS/HR Acyclovir Sodium 550 mg/Dextrose 111 ml @ 100 mls/hr Q12H IV 05/11/17 06:00 05/13/17 05:59 05/11/17 06:20 100 MLS/HR Acyclovir Sodium (Consult) 1 ea UD PRN N/A 05/11/17 03:00 06/10/17 02:59 Vancomycin HCl 1500 mg/Sodium Chloride 530 ml @ 200 mls/hr Q24H IV 05/11/17 21:00 05/13/17 02:30 Physical Exam Vital Signs (Past 24 Hrs): Date Time Temp Pulse Resp B/P (MAP) Pulse Ox O2 Delivery O2 Flow Rate FiO2 05/11/17 12:21 36.6 96 147/84 (105) 96 05/11/17 11:37 Room Air 05/11/17 08:12 36.6 104 22 139/80 (99) 92 Room Air 05/11/17 07:45 Room Air 05/11/17 04:00 Room Air 05/11/17 03:32 36.8 114 20 147/78 (101) 92 Room Air 05/11/17 02:07 37.1 122 22 162/82 93 Room Air 05/11/17 00:55 112 18 120/74 93 Room Air 05/10/17 23:33 109 18 145/67 93 Room Air 05/10/17 22:46 173/82 05/10/17 22:36 94 Room Air 05/10/17 22:33 36.8 105 18 202/98 93 Room Air 05/10/17 22:24 102 Physical Exam: Constitutional: appearance nourished, obese Ears, Nose, Mouth and Throat: mucous membranes moist, no injection and skin normal, eyes normal Cardiovascular: normal S-1 and S-2 and regular rate and rhythm Respiratory: clear to auscultation (CTA) and no rales, rhonchi or wheeze Musculoskeletal: non pitting bilateral LE edema, no rigidity of neck, neck trapezius bilaterally tender with palpation Skin: no stigmata of neurocutaneous disease noted and normal and intact Eyes: extraocular muscles intact (EOMI) and pupils equal, round and reactive to light (PERRL) NEUROLOGIC EXAMINATION: Mental status: Alert and interactive Oriented to people in room, knows she is in a hospital, identifies phone, thumb , TV Oriented to person Speech fluent with no evidence of aphasia Cranial Nerves smile eye brow raise symmetric, tongue midline Reflexes: Deep tendon reflexes were symmetrical and graded 2/5. Sensory: no sensory deficits Coordination: finger to nose with no bi pass or tremor Gait/Stance: Posture sitting up in bed Motor: Negative for pronator drift of out stretched arms with eyes closed. 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, decreased ROM right shoulder, hip flex plantar flex ext 5/5 Laboratory Results Past 24 Hours: Test 05/10/17 22:31 05/10/17 22:37 05/10/17 23:20 05/11/17 06:11 Bedside Prothrombin Time INR 1.0 (0.9-1.1) RDW Standard Deviation 41.0 fL (36.4-46.3) RDW Coefficient of Variation 12.1 % (11.5-14.5) White Blood Count 14.20 K/uL (4.8-10.8) Red Blood Count 4.51 M/uL (4.2-5.4) Hemoglobin 13.8 g/dL (12.0-16.0) Hematocrit 41.4 % (37-47) Mean Corpuscular Volume 91.8 fL (80-100) Mean Corpuscular Hemoglobin 30.6 pg (25-34) Mean Corpuscular Hemoglobin Concent 33.3 g/dl (32-36) Platelet Count 234 K/uL (130-400) Mean Platelet Volume 10.8 fL (7.4-10.4) Neutrophils (%) (Auto) 75.8 % Lymphocytes (%) (Auto) 16.6 % Monocytes (%) (Auto) 6.6 % Eosinophils (%) (Auto) 0.5 % Basophils (%) (Auto) 0.1 % Neutrophils # (Auto) 10.75 K/uL (1.4-6.5) Lymphocytes # (Auto) 2.36 K/uL (1.2-3.4) Monocytes # (Auto) 0.94 K/uL (0.11-0.59) Eosinophils # (Auto) 0.07 K/uL (0-0.5) Basophils # (Auto) 0.02 K/uL (0-0.2) Immature Granulocyte % (Auto) 0.4 % Immature Granulocyte # (Auto) 0.06 K/uL (0.00-0.02) Prothrombin Time 11.3 SECONDS (9.0-12.0) Prothromb Time International Ratio 1.1 (0.9-1.1) Activated Partial Thromboplast Time 26.1 SECONDS (21.0-31.0) Partial Thromboplastin Ratio 1.0 Est Creatinine Clear Calc Drug Dose 34.0 ml/min Total Creatine Kinase 52 U/L (26-192) Creatine Kinase MB 0.9 ng/ml (0.5-3.6) Creatine Kinase MB Ratio 1.7 (0-3.0) Troponin I < 0.015 ng/ml (0-0.045) Thyroid Stimulating Hormone (TSH) 1.450 uIu/ml (0.300-4.500) Lyme Disease IgG Antibody NEG (NEG) Lyme Disease IgM Antibody NEG (NEG) Urine Color YELLOW Urine Appearance CLEAR (CLEAR) Urine pH 8.0 (4.5-7.5) Urine Specific [place] 1.008 (1.000-1.030) Urine Protein NEG (NEG) Urine Glucose (UA) NEG (NEG) Urine Ketones NEG (NEG) Urine Occult Blood NEG (NEG) Urine Nitrite NEG (NEG) Urine Bilirubin NEG (NEG) Urine Urobilinogen NEG (NEG) Urine Leukocyte Esterase NEG (NEG) Vitamin B12 Level 385 pg/mL (211-911) Test 05/11/17 11:14 05/11/17 14:47 Bedside Glucose 115 mg/dl (70-90) Imaging EEG- This is a normal awake and drowsy routine EEG. There was no electrographic seizures or epileptiform discharges CT head- .Age-related findings without acute intracranial abnormality. Large bilateral mastoid effusions, right greater than left with fluid also present within the right middle ear cavity. Correlate clinically to exclude otomastoiditis. Impression 86 year old with extensive PMH with acute confusion now resolved and back to baseline Plan 1. MRI combo brain- pending 2. CT head - possible mastoiditis noted 3 currently on vancomycin, acyclovir, ceftriaxone, ampicillin - will need an ID consult 4. PT/OT speech for discharge needs 5. optimize DL, DM, HTN 6. carotid doppler -ordered 7. TTE ordered 8. CXR possible right sided effusion further recommendation to follow I have seen and discussed above patient with Dr Yandel Randle, neurology Patient seen and case reviewed with Cecy Coley and discussed with family who feel that she is now improved and nearly back to baseline this is an elderly woman who has a history of febrile illness related delerium and had an apparent recent uti fever and now an elevated wbc a possible right pulmonar infiltrate and on ct possible mastoiditis ( suspect this is old and due to prior childhood otitis complications ) but who is now afebrile alert but mildly confused and almost back to family baseline assessment suspect a toxic encephalopathy due to infectious process doubt mastoiditis and at this point would hold on lp await mri and echo and consider infectious disease consultation Yandel Randle MD
[2017-05-11 15:41] LABS: HEMATOCRIT 40.8 % (37-47); MEAN CELL VOLUME 91.5 fL (80-100); MEAN CORPUSCULAR HEMOGLOBIN 30.5 pg (25-34); MEAN CORPUSCULAR HGB CONC 33.3 g/dl (32-36); MEAN PLATELET VOLUME 10.9 fL (7.4-10.4); PLATELET COUNT 236 K/uL (130-400); RED BLOOD COUNT 4.46 M/uL (4.2-5.4); WHITE BLOOD COUNT 12.03 K/uL (4.8-10.8)
--- NOTE | 2017-05-11 16:02 | DIAGNOSTIC IMAGING REPORT ---
CHEST 2 VIEWS ROUTINE HISTORY: Cough. r/o Pneumonia COMPARISON: Chest 05/10/2017. FINDINGS: Right shoulder prosthesis. The heart remains mildly enlarged. No evidence for pulmonary edema. Left lung is clear. Right basilar airspace opacity persists. IMPRESSION: No change in the right base airspace opacity. This may represent atelectasis or pneumonia. Electronically signed by: Guillermo aYp M.D. 05/11/2017 4:01 PM Dictated Date/Time: 05/11/2017 3:59 PM
[2017-05-11 16:08] LABS: BUN/CREATININE RATIO 14.4 (10-20); CALCIUM 8.5 mg/dl (8.5-10.1); CREATININE 1.24 mg/dl (0.60-1.20); MAGNESIUM 1.7 mg/dl (1.8-2.4); POTASSIUM 4.8 mmol/L (3.5-5.1)
--- NOTE | 2017-05-11 19:06 | DIAGNOSTIC IMAGING REPORT ---
BILATERAL CAROTID DOPPLER STUDY HISTORY: Mental status change. COMPARISON: None. TECHNIQUE: Real-time, grayscale, and color Doppler sonography of the carotid arteries was performed. Imaging reviewed in the transverse and longitudinal planes. All measurements were calculated based on NASCET criteria. FINDINGS: Antegrade flow is seen in the bilateral vertebral arteries. The brachial pressures were not obtained due to the patient's intravenous line. Mild calcified plaque within bilateral carotid bulbs. The peak systolic velocity within the right ICA is 102 cm/s. The right systolic ratio is 1.4. The peak systolic velocity within the left ICA is 52 cm/s. The left systolic ratio is 0.7. IMPRESSION: No hemodynamically significant stenosis seen within the carotid arteries. Electronically signed by: Guillermo Yap M.D. 05/11/2017 7:05 PM Dictated Date/Time: 05/11/2017 7:03 PM
[2017-05-11] MEDS: SIMVASTATIN 40 MG TAB PO SCH (19:35)
[2017-05-11] MEDS ORDERED: VANCOMYCIN INJ 1,500 MG in SODIUM CHLORIDE 0.9% 500ML 500 ML IV SCH (21:00)
[2017-05-12] VITALS (11 sets, daily range): BP systolic 136–182; BP diastolic 80–99; PULSE 82–120; TEMP 36.4–36.9; O2SAT 90–94
[2017-05-12] MEDS: CEFTRIAXONE SOD INJ 2000 MG in DEXTROSE 5% 50ML IV SCH (02:32)
[2017-05-12] MEDS: SODIUM CHLORIDE 0.9% 1000ML 1,000 ML IV SCH (02:36)
[2017-05-12] MEDS: AMPICILLIN IV 2,000 MG in SODIUM CHLOR 0.9% AD-VAN 100ML 100 ML IV SCH ×2 (03:09→10:36)
[2017-05-12] MEDS: ACETAMINOPHEN 325 MG TAB PO PRN (04:12)
[2017-05-12] MEDS: ACYCLOVIR SOD INJ 550 MG in DEXTROSE 5% 100ML 100 ML IV SCH (05:24)
[2017-05-12 06:46] LABS: BASO % 0.2 %; BASO ABS # 0.02 K/uL (0-0.2); COMPLETE YES; EOS % 2.6 %; HEMATOCRIT 39.7 % (37-47); IG% 0.3 %; LYMPH ABS # 3.08 K/uL (1.2-3.4); MEAN CORPUSCULAR HEMOGLOBIN 30.4 pg (25-34); MEAN CORPUSCULAR HGB CONC 32.7 g/dl (32-36); MEAN PLATELET VOLUME 10.8 fL (7.4-10.4); MONO % 7.9 %; PLATELET COUNT 233 K/uL (130-400); RED BLOOD COUNT 4.27 M/uL (4.2-5.4); WHITE BLOOD COUNT 11.84 K/uL (4.8-10.8)
[2017-05-12] MEDS: INSULIN ASPART 100 UNITS/ML 3 ML PEN SC SCH ×4 (07:00→21:16)
[2017-05-12 07:15] LABS: BUN/CREATININE RATIO 12.5 (10-20); CALCIUM 8.3 mg/dl (8.5-10.1); CREATININE 1.15 mg/dl (0.60-1.20); MAGNESIUM 1.7 mg/dl (1.8-2.4); POTASSIUM 4.5 mmol/L (3.5-5.1)
[2017-05-12 07:43] LABS: ESTIMATED AVERAGE GLUCOSE 146 mg/dl; HA1C FLAG Normal (Normal)
[2017-05-12] MEDS: ASPIRIN 325 MG ECTAB PO SCH (08:11)
[2017-05-12] MEDS: DOCUSATE SODIUM 100 MG CAP PO SCH ×2 (08:11→23:03)
[2017-05-12] MEDS: LISINOPRIL 20 MG TAB PO SCH (08:11)
[2017-05-12] MEDS: PANTOprazole SOD 40 MG TAB PO SCH (08:11)
[2017-05-12] MEDS ORDERED: PERFLUTREN LIPID MICROSPHERE (DEFINITY) IV ONE (09:34)
[2017-05-12] MEDS: INSULIN GLARGINE SOLOSTAR 100 UNITS/ML 3 ML PEN SC SCH ×2 (09:55→21:17)
--- NOTE | 2017-05-12 10:33 | Medical Consult ---
Consultation Date of Consultation: May 12, 2017. Attending Physician: Nilton Lucia M.D. Reason for Consultation: Otomastoiditis History of Present Illness 86-year-old female with multiple medical comorbidities including stage 3 chronic kidney disease, diabetes mellitus, hypertension, peptic ulcer disease status post partial gastrectomy, apparently with diagnosis of atypical psychosis , who was in usual state of health until yesterday when she was found to be confused by her family. She was complaining of headache and some neck pain. CT scan was obtained in the emergency department and was found to show evidence of bilateral mastoid effusions with fluid in the right ear suggesting possible neuroma mastoiditis. She has been started empirically on vancomycin, ampicillin , ceftriaxone, and acyclovir. She has reported to have improved somewhat all in hospital. She is complaining of mild headache, 1 to 2/10 in intensity, and some pain in her neck. Otherwise she is unable to provide any adequate history. Past Medical/Surgical History Medical Problems: (1) Altered mental status Status: Acute (2) Hypertensive emergency Status: Acute Medical Problems: (1) Benign hypertension (2) Cholecystectomy (3) Chronic congestive heart failure (4) Depression (5) Diabetes mellitus (6) Hyperlipidemia (7) Myocardial infarction (8) renal disease the (9) partial gastrectomy Family History Noncontributory Social History Smoking Status: Unknown if Ever Smoked Alcohol Use: none Drug Use: none Marital Status: Housing Status: lives alone Occupation Status: retired Allergies Coded Allergies: No Known Allergies (Verified , 01/21/13) Current Inpatient Medications Current Inpatient Medications Medications (Trade) Dose Ordered Sig/Tawny Route Start Time Stop Time Status Last Admin Dose Admin Sodium Chloride 1,000 ml @ 50 mls/hr Q20H IV 05/11/17 01:43 06/10/17 01:42 05/12/17 02:36 50 MLS/HR Acetaminophen (Tylenol Tab) 650 mg Q4H PRN PO 05/11/17 00:30 06/10/17 00:29 05/12/17 04:12 650 MG Ondansetron HCl (Zofran Inj) 4 mg Q6H PRN IV 05/11/17 00:30 06/10/17 00:29 Insulin Glargine (Lantus Solostar Pen) 5 units Q12 SC 05/11/17 09:00 06/10/17 08:59 05/12/17 09:55 5 UNITS Insulin Aspart (novoLOG ASPART) SLIDING SCALE If C... ACHS SC 05/11/17 07:00 06/10/17 06:59 05/11/17 20:33 2 UNITS Glucose (Glucose 40% Gel) 15-30 GRAMS 15 GRAMS... UD PRN PO 05/11/17 00:30 06/10/17 00:29 Glucose (Glucose Chew Tab) 4-8 Tablets 4 Tabl... UD PRN PO 05/11/17 00:30 06/10/17 00:29 Dextrose (Dextrose 50% 50ML Syringe) 25-50ML OF 50% DW IV FOR... UD PRN IV 05/11/17 00:30 06/10/17 00:29 Glucagon (Glucagon Inj) 1 mg UD PRN SQ 05/11/17 00:30 06/10/17 00:29 Labetalol HCl (Normodyne IV) 10 mg Q6H PRN IV 05/11/17 00:30 06/10/17 00:29 Aspirin (Ecotrin Tab) 325 mg DAILY PO 05/11/17 09:00 06/10/17 08:59 05/12/17 08:11 325 MG Docusate Sodium (coLACE CAP) 100 mg BID PO 05/11/17 09:00 06/10/17 08:59 05/12/17 08:11 100 MG Lisinopril (Zestril Tab) 20 mg DAILY PO 05/11/17 09:00 06/10/17 08:59 05/12/17 08:11 20 MG Simvastatin (Zocor Tab) 40 mg QPM PO 05/11/17 21:00 06/10/17 20:59 05/11/17 19:35 40 MG Pantoprazole Sodium (Protonix Tab) 40 mg QAM PO 05/11/17 09:00 06/10/17 08:59 05/12/17 08:11 40 MG Vancomycin HCl (Consult) 1 ea DAILY PRN N/A 05/11/17 01:03 06/10/17 01:02 Ampicillin Sodium 2000 mg/Sodium Chloride 108 ml @ 216 mls/hr Q6H IV 05/11/17 04:00 05/13/17 03:59 05/12/17 03:09 216 MLS/HR Miscellaneous Information 1 ea UD PRN N/A 05/11/17 02:45 06/10/17 02:44 Ceftriaxone Sodium 2000 mg/ Dextrose 70 ml @ 140 mls/hr Q12H IV 05/11/17 03:00 05/13/17 02:59 05/12/17 02:32 140 MLS/HR Acyclovir Sodium 550 mg/Dextrose 111 ml @ 100 mls/hr Q12H IV 05/11/17 06:00 05/13/17 05:59 05/12/17 05:24 100 MLS/HR Acyclovir Sodium (Consult) 1 ea UD PRN N/A 05/11/17 03:00 06/10/17 02:59 Vancomycin HCl 1500 mg/Sodium Chloride 530 ml @ 200 mls/hr Q24H IV 05/11/17 21:00 05/13/17 02:30 05/11/17 19:34 200 MLS/HR Review of Systems Not obtainable because of patient's mental status Physical Exam Date Time Temp Pulse Resp B/P (MAP) Pulse Ox O2 Delivery O2 Flow Rate FiO2 05/12/17 08:01 92 Room Air 05/12/17 07:32 36.7 106 20 182/95 (124) 90 Room Air 05/12/17 04:00 92 Room Air 05/12/17 03:53 36.7 82 20 159/80 (106) 92 Room Air 05/12/17 00:05 36.9 100 20 136/82 (100) 92 Room Air 05/11/17 23:59 92 Room Air 05/11/17 20:00 Room Air 05/11/17 19:09 36.7 86 18 155/81 (105) 93 Room Air 05/11/17 15:30 Room Air 05/11/17 15:03 36.6 80 16 166/81 (109) 94 Room Air 05/11/17 12:21 36.6 96 147/84 (105) 96 05/11/17 11:37 Room Air General Appearance: WD/WN, no apparent distress Head: normocephalic, atraumatic Eyes: normal inspection, EOMI, sclerae normal ENT: hearing grossly normal, pharynx normal, + pertinent finding Neck: supple, no adenopathy, thyroid normal, trachea midline Respiratory/Chest: chest non-tender, lungs clear, normal breath sounds, no respiratory distress Cardiovascular: regular rate, rhythm, no gallop, no murmur Abdomen/GI: normal bowel sounds, non tender, soft, no organomegaly Back: normal inspection, no CVA tenderness Extremities/Musculoskelatal: no calf tenderness, non-tender Neurologic/Psych: alert, + disoriented Skin: normal color, warm/dry, no rash Lymphatic: no adenopathy Laboratory Results RUN DATE: 05/12/17 [facility] LAB PAGE 1 RUN TIME: 723 Specimen Inquiry PATIENT: JASON WALTON LOC: C.2T U # : [id number] AGE/SX: 86/F ROOM: S243 REG : 05/11/[address]: Nilton Lucia M.D. : 1930 BED: 1 DIS : STATUS: ADM IN TLOC: SPEC #: [id number] MANISHA: 05/11/17 STATUS: RES REQ #: [id number] RECD: 05/11/[address] [facility] [address]: Emiliano Espitia MD SOURCE: BLOOD ENTR: 05/10/[address] [facility] [address]: Harjit Adler [facility].D. [facility] MD ORDERED: BLOOD CULTURE Procedure Result Verified Site BLD CULT Preliminary 05/12/17 NO GROWTH TO DATE. Last 24 Hours Test 05/11/17 11:14 05/11/17 15:25 05/11/17 16:38 05/11/17 20:21 Bedside Glucose 115 mg/dl 123 mg/dl 244 mg/dl White Blood Count 12.03 K/uL Red Blood Count 4.46 M/uL Hemoglobin 13.6 g/dL Hematocrit 40.8 % Mean Corpuscular Volume 91.5 fL Mean Corpuscular Hemoglobin 30.5 pg Mean Corpuscular Hemoglobin Concent 33.3 g/dl RDW Standard Deviation 41.4 fL RDW Coefficient of Variation 12.2 % Platelet Count 236 K/uL Mean Platelet Volume 10.9 fL Sodium Level 143 mmol/L Potassium Level 4.8 mmol/L Chloride Level 110 mmol/L Carbon Dioxide Level 26 mmol/L Anion Gap 7.0 mmol/L Blood Urea Nitrogen 18 mg/dl Creatinine 1.24 mg/dl Est Creatinine Clear Calc Drug Dose 35.8 ml/min Estimated GFR () 45.2 Estimated GFR (Non- 39.0 BUN/Creatinine Ratio 14.4 Random Glucose 141 mg/dl Calcium Level 8.5 mg/dl Magnesium Level 1.7 mg/dl Total Bilirubin 0.4 mg/dl Direct Bilirubin 0.1 mg/dl Aspartate Amino Transf (AST/SGOT) 15 U/L Alanine Aminotransferase (ALT/SGPT) 16 U/L Alkaline Phosphatase 86 U/L Total Protein 7.3 gm/dl Albumin 3.3 gm/dl Test 05/12/17 06:25 05/12/17 06:54 05/12/17 10:23 White Blood Count 11.84 K/uL Red Blood Count 4.27 M/uL Hemoglobin 13.0 g/dL Hematocrit 39.7 % Mean Corpuscular Volume 93.0 fL Mean Corpuscular Hemoglobin 30.4 pg Mean Corpuscular Hemoglobin Concent 32.7 g/dl Platelet Count 233 K/uL Mean Platelet Volume 10.8 fL Neutrophils (%) (Auto) 63.0 % Lymphocytes (%) (Auto) 26.0 % Monocytes (%) (Auto) 7.9 % Eosinophils (%) (Auto) 2.6 % Basophils (%) (Auto) 0.2 % Neutrophils # (Auto) 7.46 K/uL Lymphocytes # (Auto) 3.08 K/uL Monocytes # (Auto) 0.94 K/uL Eosinophils # (Auto) 0.31 K/uL Basophils # (Auto) 0.02 K/uL RDW Standard Deviation 41.8 fL RDW Coefficient of Variation 12.5 % Immature Granulocyte % (Auto) 0.3 % Immature Granulocyte # (Auto) 0.03 K/uL Sodium Level 144 mmol/L Potassium Level 4.5 mmol/L Chloride Level 111 mmol/L Carbon Dioxide Level 26 mmol/L Anion Gap 7.0 mmol/L Blood Urea Nitrogen 14 mg/dl Creatinine 1.15 mg/dl Est Creatinine Clear Calc Drug Dose 38.7 ml/min Estimated GFR () 49.5 Estimated GFR (Non- 42.7 BUN/Creatinine Ratio 12.5 Random Glucose 117 mg/dl Estimated Average Glucose 146 mg/dl Hemoglobin A1c 6.7 % Calcium Level 8.3 mg/dl Magnesium Level 1.7 mg/dl Bedside Glucose 116 mg/dl HEAD WITHOUT CONTRAST (CT) CLINICAL HISTORY: 86 years-old Female with Pt c/o AMS, HTN. Acute altered mental status with hypertension. TECHNIQUE: Multiple axial CT images of the head were obtained without contrast. A dose lowering technique was utilized adhering to the principles of ALARA. CT DOSE: 623.48 mGy.cm COMPARISON: None. FINDINGS: No acute intracranial hemorrhage, midline shift, mass, large territorial ischemia or abnormal extra-axial collection. Moderate atrophy with ex vacuo ventriculomegaly. Ill-defined areas of low attenuation within the periventricular white matter suggests chronic microvascular ischemic changes. The calvarium is intact. Large bilateral mastoid effusions are noted with complete opacification on the right. Large amount of fluid within the right middle ear cavity is noted. Paranasal sinuses are generally clear. Soft tissues are unremarkable. IMPRESSION: 1. Age-related findings without acute intracranial abnormality. 2. Large bilateral mastoid effusions, right greater than left with fluid also present within the right middle ear cavity. Correlate clinically to exclude otomastoiditis. The above report was generated using voice recognition software. It may contain grammatical, syntax or spelling errors. Electronically signed by: Gurvinder Vyas M.D. 05/10/2017 10:30 PM Dictated Date/Time: 05/10/2017 10:27 PM The status of this report is Signed. Draft = Not yet reviewed or approved by Radiologist. Signed = Reviewed and approved by Radiologist. <AttendingPhy></AttendingPhy> <FamilyPhy>Adelfo Laura M.D.</FamilyPhy > <PrimaryPhy>[facility]</PrimaryPhy> <UnitNumber>[id number]</UnitNumber> < VisitNumber>[id number]</VisitNumber> <PatientName>JASON WALTON</ PatientName> <DateOfBirth>1930</DateOfBirth> <Location>[facility]</Location> < ServiceDate>05/10/17</ServiceDate> <MNE>ESINDI</MNE> <OrderingPhy>Emiliano Espitia MD</OrderingPhy> <OrderingPhyMNE>f rep ord dr carrero</OrderingPhyMNE> < DictatingPhyMNE>f rep dict dr carrero</DictatingPhyMNE> <CCListMNE>f rep ct obede</ CCListMNE> <AdmittingPhyMNE>f pt admit dr carrero</AdmittingPhyMNE> <AttendingPhyMNE >f pt attend dr carrero</AttendingPhyMNE> <ConsultingPhyMNE>f pt consult dr carrero</ConsultingPhyMNE> <FamilyPhyMNE>f pt fam dr carrero</FamilyPhyMNE> <OtherPhyMNE>f pt other Assessment & Plan 86-year-old female with diabetes now presents with acute change in mental status with findings of possible right otomastoiditis on CT scanning. Typical pathogens include Staph aureus, Pseudomonas, as well as strep pneumoniae, Haemophilus, and other Gram-negative. Would recommend discontinuation of ampicillin and ceftriaxone and substitution of cefepime. Would obtain ENT consultation. Would also consider lumbar puncture as this does occur in the setting of chronic inner ear disease, and may present atypically for meningitis. Will discuss with all involved. Will follow.
--- NOTE | 2017-05-12 14:22 | Progress Note ---
Internal Med Progress Note Date of Service: May 12, 2017. Provider Documentation: SUBJECTIVE: The patient was seen and examined Denies any hallucinations or delusions but admits to have recent memory impairment Feels better and wants to go home Remains pleasantly confused OBJECTIVE: Vital Signs-as noted below Exam: General-No distress at rest Sitting on a chair comfortably Eyes-normal ENT-normal Neck-Supple Lungs-Clear to ausucltate bilaterally Decreased breath sound bilaterally Heart-Regular,no murmur appreciated Abdomen-Benign,no masses,bowel sound present Extremities-Trace edema bilaterally Neuro-AA Pleasantly confused Generally weak and lethargic NO focal Neuro deficit No Neck stiffness Lab data as noted below. ASSESSMENT & PLAN: Encephalopathy: Unclear etiology. Presented with confusion, leukocytosis, headache and neck pain DD:Meningitis/encephalitis/drug induced/ Sepsis/H/O Psychosis/ Seizure CT head: showed possible otomastoiditis and no other acute findings. Started on broad spectrum IV antibiotics/antiviral Neuro checks -no acute finding, Doubt any meningitis Hold Lorazepam and Detrol for now Blood cultures-Negative UA: normal and CXR did not show any pneumonia Lyme titer negative EEG-Negative MRI -pending Check TSH, O25-gyioeq Neurology consulted -appreciate Input Clinically better today Repeat CBC,PRP,LFT ,Mg and CXR-no significant abnormality Likely to need ENT consult and LP as per ID recommendation Hypertensive Urgency: Initially very high 202/98 Treated with Nicardipine ggt in ED BP remains elevated Continue lisinopril DM II Will hold oral diabetic meds Last A1c:6.3 on 05/03/17 ISS, basal Insulin, Accu checks, Diabetic diet HLP: continue Zocor CKD III: Cr:1.36 at baseline Monitor renal function-normalized H/O PUD S/P partial gastrectomy in 1970s continue PPI H/O Depression and Atypical Psychosis Hold Lorazepam secondary to AMS May need psychiatry evaluation Overactive Bladder; Hold Detrol for now DVT Px: SCDs for now Code Status: Full Code as per my discussion with patient's son DISPOSITION Awaited Vital Signs: Date Time Temp Pulse Resp B/P (MAP) Pulse Ox O2 Delivery O2 Flow Rate FiO2 05/12/17 12:12 36.6 120 16 168/82 (110) 92 Room Air 05/12/17 12:08 92 Room Air 05/12/17 08:01 92 Room Air 05/12/17 07:32 36.7 106 20 182/95 (124) 90 Room Air 05/12/17 04:00 92 Room Air 05/12/17 03:53 36.7 82 20 159/80 (106) 92 Room Air 05/12/17 00:05 36.9 100 20 136/82 (100) 92 Room Air 05/11/17 23:59 92 Room Air 05/11/17 20:00 Room Air 05/11/17 19:09 36.7 86 18 155/81 (105) 93 Room Air 05/11/17 15:30 Room Air 05/11/17 15:03 36.6 80 16 166/81 (109) 94 Room Air Lab Results: Results Past 24 Hours Test 05/11/17 15:25 05/11/17 16:38 05/11/17 20:21 05/12/17 06:25 Range/Units White Blood Count 12.03 11.84 4.8-10.8 K/uL Red Blood Count 4.46 4.27 4.2-5.4 M/uL Hemoglobin 13.6 13.0 12.0-16.0 g/dL Hematocrit 40.8 39.7 37-47 % Mean Corpuscular Volume 91.5 93.0 80-100 fL Mean Corpuscular Hemoglobin 30.5 30.4 25-34 pg Mean Corpuscular Hemoglobin Concent 33.3 32.7 32-36 g/dl RDW Standard Deviation 41.4 41.8 36.4-46.3 fL RDW Coefficient of Variation 12.2 12.5 11.5-14.5 % Platelet Count 236 233 130-400 K/uL Mean Platelet Volume 10.9 10.8 7.4-10.4 fL Sodium Level 143 144 136-145 mmol/L Potassium Level 4.8 4.5 3.5-5.1 mmol/L Chloride Level 110 111 98-107 mmol/L Carbon Dioxide Level 26 26 21-32 mmol/L Anion Gap 7.0 7.0 3-11 mmol/L Blood Urea Nitrogen 18 14 7-18 mg/dl Creatinine 1.24 1.15 0.60-1.20 mg/dl Est Creatinine Clear Calc Drug Dose 35.8 38.7 ml/min Estimated GFR () 45.2 49.5 Estimated GFR (Non- 39.0 42.7 BUN/Creatinine Ratio 14.4 12.5 10-20 Random Glucose 141 117 70-99 mg/dl Calcium Level 8.5 8.3 8.5-10.1 mg/dl Magnesium Level 1.7 1.7 1.8-2.4 mg/dl Total Bilirubin 0.4 0.2-1 mg/dl Direct Bilirubin 0.1 0-0.2 mg/dl Aspartate Amino Transf (AST/SGOT) 15 15-37 U/L Alanine Aminotransferase (ALT/SGPT) 16 12-78 U/L Alkaline Phosphatase 86 45-117 U/L Total Protein 7.3 6.4-8.2 gm/dl Albumin 3.3 3.4-5.0 gm/dl Bedside Glucose 123 244 70-90 mg/dl Neutrophils (%) (Auto) 63.0 % Lymphocytes (%) (Auto) 26.0 % Monocytes (%) (Auto) 7.9 % Eosinophils (%) (Auto) 2.6 % Basophils (%) (Auto) 0.2 % Neutrophils # (Auto) 7.46 1.4-6.5 K/uL Lymphocytes # (Auto) 3.08 1.2-3.4 K/uL Monocytes # (Auto) 0.94 0.11-0.59 K/uL Eosinophils # (Auto) 0.31 0-0.5 K/uL Basophils # (Auto) 0.02 0-0.2 K/uL Immature Granulocyte % (Auto) 0.3 % Immature Granulocyte # (Auto) 0.03 0.00-0.02 K/uL Estimated Average Glucose 146 mg/dl Hemoglobin A1c 6.7 4.5-5.6 % Test 05/12/17 06:54 05/12/17 10:33 05/12/17 11:38 Range/Units Bedside Glucose 116 194 70-90 mg/dl Procalcitonin < 0.05 0-0.5 ng/ml
--- NOTE | 2017-05-12 15:19 | Pharmacy Progress Note ---
Pharmacy Abx Dose Short Note Date of Service May 12, 2017. Assessment & Plan Assessment 86 year old female receiving Vancomycin, acyclovir, rocephin, and ampicilin for treatment of possible meningitis. Day # 2 of antimicrobial therapy. Therapy was originally empiric x 48 hours. Plan Spoke with Dr. Peraza who extended therapy with vancomycin. Rocephin, acyclovir and ampicillin were discontinued. Cefepime 2 gm q 12 hours was started for pseudomonal coverage per telephone verbal order. Vancomycin * Continue dose of 1500 mg IV every 24 hours * Goal trough level for meningitis: 15 to 20 mcg/mL * Estimated PK parameters: T1/2=19 hours Ke=0.036 Vd=0.7 L/kg * Trough level ordered for: 05/13 @2029 Pharmacy will continue to follow and will adjust dose/frequency as necessary. Thank you.
--- NOTE | 2017-05-12 16:01 | Neurology Progress Notes ---
Neurology Progress Note Date of Service May 12, 2017. Talat Mcbride is an 86 year old female with a PMH of DM II, DL, CKD III, PUD S/P partial gastrectomy in , HTN, depression and Atypical Psychosis. She presented with a mental status change. Son reported to ED staff he found her confused at around 3pm. She is complaining of severe headache and she took Ibuprofen which helped with headache. Son checked her blood sugar was 259. She had a UTI 1 week ago and completed antibiotics. denies falls, change of medications, LOC, fever, N,V, abd pain, diarrhea. She continued to be confused in the ED and didn't know her sons name. She was found to have Hypertensive Urgency, Tachycardia, leukocytosis and complains of neck pain but there is no neck stiffness on exam. CT head showed large bilateral mastoid effusions, R>L and fluid in right middle ear cavity suggestive of possible otomastoiditis. She states she is doing well today and walked to the bathroom with assistance and walker, denies CP, SOB, abdominal pain, one numbness, tingling, weakness, N , V. falls. Objective Date Time Temp Pulse Resp B/P (MAP) Pulse Ox O2 Delivery O2 Flow Rate FiO2 05/12/17 12:12 36.6 120 16 168/82 (110) 92 Room Air 05/12/17 12:08 92 Room Air 05/12/17 08:01 92 Room Air 05/12/17 07:32 36.7 106 20 182/95 (124) 90 Room Air 05/12/17 04:00 92 Room Air 05/12/17 03:53 36.7 82 20 159/80 (106) 92 Room Air 05/12/17 00:05 36.9 100 20 136/82 (100) 92 Room Air 05/11/17 23:59 92 Room Air 05/11/17 20:00 Room Air 05/11/17 19:09 36.7 86 18 155/81 (105) 93 Room Air Last 24 Hours Test 05/11/17 16:38 05/11/17 20:21 05/12/17 06:25 05/12/17 06:54 Bedside Glucose 123 mg/dl 244 mg/dl 116 mg/dl White Blood Count 11.84 K/uL Red Blood Count 4.27 M/uL Hemoglobin 13.0 g/dL Hematocrit 39.7 % Mean Corpuscular Volume 93.0 fL Mean Corpuscular Hemoglobin 30.4 pg Mean Corpuscular Hemoglobin Concent 32.7 g/dl Platelet Count 233 K/uL Mean Platelet Volume 10.8 fL Neutrophils (%) (Auto) 63.0 % Lymphocytes (%) (Auto) 26.0 % Monocytes (%) (Auto) 7.9 % Eosinophils (%) (Auto) 2.6 % Basophils (%) (Auto) 0.2 % Neutrophils # (Auto) 7.46 K/uL Lymphocytes # (Auto) 3.08 K/uL Monocytes # (Auto) 0.94 K/uL Eosinophils # (Auto) 0.31 K/uL Basophils # (Auto) 0.02 K/uL RDW Standard Deviation 41.8 fL RDW Coefficient of Variation 12.5 % Immature Granulocyte % (Auto) 0.3 % Immature Granulocyte # (Auto) 0.03 K/uL Sodium Level 144 mmol/L Potassium Level 4.5 mmol/L Chloride Level 111 mmol/L Carbon Dioxide Level 26 mmol/L Anion Gap 7.0 mmol/L Blood Urea Nitrogen 14 mg/dl Creatinine 1.15 mg/dl Est Creatinine Clear Calc Drug Dose 38.7 ml/min Estimated GFR () 49.5 Estimated GFR (Non- 42.7 BUN/Creatinine Ratio 12.5 Random Glucose 117 mg/dl Estimated Average Glucose 146 mg/dl Hemoglobin A1c 6.7 % Calcium Level 8.3 mg/dl Magnesium Level 1.7 mg/dl Test 05/12/17 10:33 05/12/17 11:38 Procalcitonin < 0.05 ng/ml Bedside Glucose 194 mg/dl Imaging: carotid doppler- No hemodynamically significant stenosis seen within the carotid arteries. Exam: Physical Exam: Constitutional: appearance nourished, healthy and obese, pleasantly confused Ears, Nose, Mouth and Throat: mucous membranes moist, no injection and skin normal, eyes normal Cardiovascular: normal S-1 and S-2 and regular rate and rhythm Respiratory: course breath sounds Musculoskeletal: non pitting peripheral edema Skin: neurocutaneous disease noted Eyes: extraocular muscles intact (EOMI) and pupils equal, round and reactive to light (PERRL) NEUROLOGIC EXAMINATION: Mental status: Alert and interactive unable to give location or date without prompting, able to identify TV, pen cell phone Oriented to person Speech fluent with no evidence of aphasia Cranial Nerves smile eye brow raise symmetric Reflexes: Deep tendon reflexes were symmetrical and graded 2/5. Sensory: decreased sensation to light touch to mid calf Coordination: finger to nose without bi pass or tremor Gait/Stance: Posture normal sitting in bed Motor: Negative for pronator drift of out stretched arms with eyes closed. Strength: biceps triceps hand roll dough divider 5/5 bilaterally hip flex 5/5 bilaterally Current Inpatient Medications Medications (Trade) Dose Ordered Sig/Tawny Route Start Time Stop Time Status Last Admin Dose Admin Sodium Chloride 1,000 ml @ 50 mls/hr Q20H IV 05/11/17 01:43 06/10/17 01:42 05/12/17 02:36 50 MLS/HR Acetaminophen (Tylenol Tab) 650 mg Q4H PRN PO 05/11/17 00:30 06/10/17 00:29 05/12/17 04:12 650 MG Ondansetron HCl (Zofran Inj) 4 mg Q6H PRN IV 05/11/17 00:30 06/10/17 00:29 Insulin Glargine (Lantus Solostar Pen) 5 units Q12 SC 05/11/17 09:00 06/10/17 08:59 05/12/17 09:55 5 UNITS Insulin Aspart (novoLOG ASPART) SLIDING SCALE If C... ACHS SC 05/11/17 07:00 06/10/17 06:59 05/12/17 13:09 2 UNITS Glucose (Glucose 40% Gel) 15-30 GRAMS 15 GRAMS... UD PRN PO 05/11/17 00:30 06/10/17 00:29 Glucose (Glucose Chew Tab) 4-8 Tablets 4 Tabl... UD PRN PO 05/11/17 00:30 06/10/17 00:29 Dextrose (Dextrose 50% 50ML Syringe) 25-50ML OF 50% DW IV FOR... UD PRN IV 05/11/17 00:30 06/10/17 00:29 Glucagon (Glucagon Inj) 1 mg UD PRN SQ 05/11/17 00:30 06/10/17 00:29 Labetalol HCl (Normodyne IV) 10 mg Q6H PRN IV 05/11/17 00:30 06/10/17 00:29 Aspirin (Ecotrin Tab) 325 mg DAILY PO 05/11/17 09:00 06/10/17 08:59 05/12/17 08:11 325 MG Docusate Sodium (coLACE CAP) 100 mg BID PO 05/11/17 09:00 06/10/17 08:59 05/12/17 08:11 100 MG Lisinopril (Zestril Tab) 20 mg DAILY PO 05/11/17 09:00 06/10/17 08:59 05/12/17 08:11 20 MG Simvastatin (Zocor Tab) 40 mg QPM PO 05/11/17 21:00 06/10/17 20:59 05/11/17 19:35 40 MG Pantoprazole Sodium (Protonix Tab) 40 mg QAM PO 05/11/17 09:00 06/10/17 08:59 05/12/17 08:11 40 MG Vancomycin HCl (Consult) 1 ea DAILY PRN N/A 05/11/17 01:03 06/10/17 01:02 Cefepime HCl 2000 mg/Dextrose 112.5 ml @ 225 mls/hr Q12H IV 05/12/17 16:00 05/22/17 15:59 Vancomycin HCl 1500 mg/Sodium Chloride 530 ml @ 200 mls/hr Q24H IV 05/12/17 21:00 05/21/17 20:59 Impression 86 year old with extensive PMH with acute confusion now resolved and back to baseline Plan 1. MRI combo brain- pending 2. CT head - possible mastoiditis noted- likely chronic findings 3 currently ID consult tapering antibiotics 4. PT/OT speech for discharge needs 5. optimize DL, DM, HTN 6. carotid doppler -No hemodynamically significant stenosis seen within the carotid arteries. 7. TTE pending 8. CXR possible right sided effusion I have seen and discussed above patient with Dr Kassi Randle, neurology Paatient seen remains pleasantly confused with non focal exam and no headaches awaiting mri to check for mastoiditis but wonder if much of this is old ent consulted and decision re lp remains unmade and contingent upon mri and ent evaluation She may have a parameningeal focus of infection in the mastoids but if she has a bacterial meningitis she has mchugh a remarkable clinical response to very brief exposure to antibiotics. will follow up tomorrow LP if done would best be accomplished in radiology to obtain a clean tap Kassi Randle MD
[2017-05-12] MEDS: CEFEPIME IV 2000 MG in DEXTROSE 5% 100ML IV SCH (16:36)
[2017-05-12] MEDS ORDERED: GADAVIST IV PRN (20:45)
--- NOTE | 2017-05-12 20:50 | DIAGNOSTIC IMAGING REPORT ---
MRI OF THE BRAIN COMBO CLINICAL HISTORY: Change in mental status. COMPARISON STUDY: CT of the brain dated 05/10/2017. TECHNIQUE: MRI of the brain was performed utilizing various T1 and T2-weighted sequences in the axial, sagittal, and coronal planes. Contrast-enhanced sequences were acquired following the administration of 9.5 cc of Gadavist. FINDINGS: Brain parenchyma: There are age-related involutional changes noting mild subcortical and periventricular microangiopathic disease. Chronic lacunar infarcts are present within both cerebellar hemispheres. There is no hemorrhage or mass effect. There is no restricted diffusion to suggest acute ischemia. No enhancing mass lesion is identified on the postcontrast images. [place]-white matter differentiation is preserved. No extra-axial fluid collection is seen. The cerebellar tonsils are normal in configuration. Ventricles, sulci, and cisterns: Prominent secondary to involutional change. Pituitary and sella: Unremarkable. Intracranial vasculature: Normal flow voids are maintained at the skull base. Orbits: The bony orbits are grossly intact. Orbital contents are normal in appearance. Sinuses and mastoids: There are large mastoid effusions. The paranasal sinuses are clear. Calvarium: Unremarkable. Cervical cord: Partially visualized cervical spinal cord is normal in morphology and signal intensity. IMPRESSION: 1. Senescent changes as above with no acute intracranial abnormality. 2. Large mastoid effusions. Correlate clinically for evidence of mastoiditis. Electronically signed by: Aleksandr Salazar M.D. 05/12/2017 8:48 PM Dictated Date/Time: 05/12/2017 8:44 PM
[2017-05-12] MEDS: VANCOMYCIN INJ 1,500 MG in SODIUM CHLORIDE 0.9% 500ML 500 ML IV SCH (21:07)
[2017-05-12] MEDS: SIMVASTATIN 40 MG TAB PO SCH (23:03)
[2017-05-13] VITALS (8 sets, daily range): BP systolic 143–188; BP diastolic 77–91; PULSE 70–106; TEMP 36.4–36.9; O2SAT 91–93
[2017-05-13] MEDS: CEFEPIME IV 2000 MG in DEXTROSE 5% 100ML IV SCH ×2 (05:01→15:51)
[2017-05-13] MEDS: SODIUM CHLORIDE 0.9% 1000ML 1,000 ML IV SCH (05:01)
[2017-05-13 07:02] LABS: BASO % 0.2 %; BASO ABS # 0.02 K/uL (0-0.2); COMPLETE YES; EOS % 3.6 %; HEMATOCRIT 37.9 % (37-47); IG% 0.1 %; LYMPH % 25.1 %; LYMPH ABS # 2.35 K/uL (1.2-3.4); MEAN CELL VOLUME 92.9 fL (80-100); MEAN CORPUSCULAR HEMOGLOBIN 30.9 pg (25-34); MEAN CORPUSCULAR HGB CONC 33.2 g/dl (32-36); MONO % 8.9 %; NEUT % 62.1 %; PLATELET COUNT 206 K/uL (130-400); RED BLOOD COUNT 4.08 M/uL (4.2-5.4); WHITE BLOOD COUNT 9.37 K/uL (4.8-10.8)
[2017-05-13 07:32] LABS: BUN/CREATININE RATIO 13.6 (10-20); CALCIUM 8.4 mg/dl (8.5-10.1); CREATININE 0.99 mg/dl (0.60-1.20); MAGNESIUM 1.5 mg/dl (1.8-2.4); POTASSIUM 4.4 mmol/L (3.5-5.1)
[2017-05-13] MEDS: INSULIN ASPART 100 UNITS/ML 3 ML PEN SC SCH ×4 (08:54→21:52)
[2017-05-13] MEDS: INSULIN GLARGINE SOLOSTAR 100 UNITS/ML 3 ML PEN SC SCH ×2 (08:55→21:52)
[2017-05-13] MEDS: ASPIRIN 325 MG ECTAB PO SCH (09:24)
[2017-05-13] MEDS: PANTOprazole SOD 40 MG TAB PO SCH (09:24)
[2017-05-13] MEDS: LISINOPRIL 20 MG TAB PO SCH ×2 (09:25→21:35)
[2017-05-13] MEDS: DOCUSATE SODIUM 100 MG CAP PO SCH ×2 (09:25→21:35)
--- NOTE | 2017-05-13 12:24 | HISTORY & PHYSICAL EXAMINATION ---
DATE OF ADMISSION: 05/11/2017 DIAGNOSIS: Chronic otitis media of right more so than the left ear. HISTORY OF PRESENT ILLNESS: This 86-year-old lady was admitted with change in mental status. The CT scan showed bilateral mastoid effusions, more so on the right. The consultation was requested to evaluate her ears. Specifically, the patient denies any otalgia or any mastoid tenderness or any dizziness, specifically no vertigo. She denies any change in her hearing. In fact she stated that she can hear well. PAST MEDICAL HISTORY: Pertinent for stage III renal disease, diabetes, hypertension, atypical psychosis. SURGERIES: Include a partial gastrectomy in 1969. SOCIAL HISTORY: Nonsmoker. ALLERGIES: None known. MEDICATIONS: Include insulin, lisinopril, omeprazole, Prandin, simvastatin and Detrol. PHYSICAL EXAMINATION: GENERAL: Elderly female in no apparent distress. She seems to be alert today. HEAD: Normocephalic. EYES: Normal. EARS: The right ear has cerumen and some wet drainage. The tympanic membrane could not be visualized on the right side. Specifically, there is no purulent drainage and there is no tenderness of the mastoid or of the auricle. The left tympanic membrane appears to be intact and does appear to be dull consistent with middle ear effusion. There is specifically no redness and no drainage from the left side. NOSE: Nasal passages are patent. THROAT: Shows normal oropharynx with moderate sized tonsils. IMPRESSION: Chronic otitis media with bilateral mastoid effusions; however, there is no sign of acute mastoiditis or acute labyrinthitis. RECOMMENDATIONS: The patient should have the cerumen in the right ear removed followed by an audiogram. This can be done in my office. If she does indeed have effusion in both ears, the patient may need PE tubes in ears. Specifically with no otologic complaints, I believe the otitis media is chronic and not an acute process and probably not related to her mental status change. If she does have an acute otitis media, she has been covered quite well with the antibiotics. JORDIN
--- NOTE | 2017-05-13 14:45 | ECHOCARDIOGRAM REPORT ---
*NOTICE TO RECEIVING DEMOCRAT AGENCY This information is strictly Confidential and protected under [place] law. [place] law prohibits you from making any further disclosure of this information unless further disclosure is expressly permitted by the written consent of the person to whom it pertains or is authorized by law. A general authorization for the release of medical or other information is not sufficient for this purpose. Hospital accepts no responsibility if the information is made available to any other person, INCLUDING THE PATIENT. Interpretation Summary * Name: JASON WALTON Study Date: 05/12/2017 08:14 AM BP: 182/95 mmHg * Patient Location: C.2T\S\S243\S\1 HR: 106 * : 1930 (M/d/yy) Gender: Female Height: 64 in * Age: 86 yrs Ethnicity: CA Weight: 210 lb * Ordering Physician: Cecy Brown * Performed By: Sofy Araujo RDCS * * Reason For Study: MS CHANGE FEVER OF UNKNOWN SOURCE * BSA: 2.0 m2 * The study was technically limited. * -- Conclusions -- * The study was technically limited. * The left ventricular ejection fraction is grossly normal. * Poor acoustic windows. Cannot comment on the right heart or valvualr pathology. Procedure Details * A complete two-dimensional transthoracic echocardiogram was performed (2D, M-mode, Doppler and color flow Doppler). * The study was technically limited. * The study was technically difficult. * Limited views were obtained. * There were technical limitations due to patient's inability to cooperate, poor positioning, and body habitus. * A contrast injection of Definity was performed to improve assessment of LV function. * Contrast was injected into an intravenous site in the left arm. * One vial of Definity ultrasound contrast was diluted in normal saline to a total volume of 10 ml. A total of '3' ml of solution was administered during imaging. * Lot # [id number] of Definity utilized for procedure. * Expiration date 05/12. * The attending nurse who injected the contrast agent was chino joyner RN. Left Ventricle * The left ventricle is grossly normal size. * Ejection Fraction = 65-70%. * The left ventricular ejection fraction is grossly normal. Right Ventricle * The right ventricle is not well visualized. * The right ventricle is grossly normal size. * The right ventricular systolic function is normal. Atria * The left atrium is not well visualized. * Right atrium not well visualized. Mitral Valve * The mitral valve is not well visualized. Tricuspid Valve * The tricuspid valve is not well visualized. Aortic Valve * The aortic valve is not well visualized. Pulmonic Valve * The pulmonic valve is not well visualized. MMode 2D Measurements and Calculations IVSd 1.1 cm IVSs 1.3 cm LVIDd 4.3 cm LVIDs 2.7 cm LVPWd 1.3 cm LVPWs 1.7 cm IVS/LVPW 0.85 FS 36.5 % EDV(Teich) 83.4 ml ESV(Teich) 27.9 ml EF(Teich) 66.5 % EDV(cubed) 79.9 ml ESV(cubed) 20.5 ml EF(cubed) 74.3 % % IVS thick 22.9 % % LVPW thick 35.1 % LV mass(C)d 182.3 grams LV mass(C)dI 91.3 grams/m\S\2 LV mass(C)s 146.8 grams LV mass(C)sI 73.5 grams/m\S\2 SV(Teich) 55.5 ml SI(Teich) 27.8 ml/m\S\2 SV(cubed) 59.4 ml SI(cubed) 29.7 ml/m\S\2 asc Aorta Diam 4.5 cm LVOT diam 1.7 cm LVOT area 2.4 cm\S\2 LVAd ap4 15.1 cm\S\2 LVLd ap4 6.2 cm EDV(MOD-sp4) 30.5 ml EDV(sp4-el) 31.1 ml LVAs ap4 7.8 cm\S\2 LVLs ap4 5.4 cm ESV(MOD-sp4) 9.3 ml ESV(sp4-el) 9.6 ml EF(MOD-sp4) 69.5 % EF(sp4-el) 69.2 % SV(MOD-sp4) 21.2 ml SI(MOD-sp4) 10.6 ml/m\S\2 SV(sp4-el) 21.5 ml SI(sp4-el) 10.8 ml/m\S\2 Doppler Measurements and Calculations MV E max andre 72.3 cm/sec MV A max andre 67.4 cm/sec MV E/A 1.1 MV dec time 0.27 sec Ao V2 max 173.7 cm/sec Ao max PG 12.1 mmHg Ao max PG (full) 9.7 mmHg KAVON(V,A) 1.1 cm\S\2 KAVON(V,D) 1.1 cm\S\2 LV V1 max PG 2.4 mmHg LV V1 max 77.6 cm/sec PA V2 max 106.7 cm/sec PA max PG 4.6 mmHg
--- NOTE | 2017-05-13 14:48 | Neurology Progress Notes ---
Neurology Progress Note Date of Service May 13, 2017. Talat Mcbride is an 86 year old female with a PMH of DM II, DL, CKD III, PUD S/P partial gastrectomy in , HTN, depression and Atypical Psychosis. She presented with a mental status change. Son reported to ED staff he found her confused at around 3pm. She is complaining of severe headache and she took Ibuprofen which helped with headache. Son checked her blood sugar was 259. She had a UTI 1 week ago and completed antibiotics. denies falls, change of medications, LOC, fever, N,V, abd pain, diarrhea. She continued to be confused in the ED and didn't know her sons name. She was found to have Hypertensive Urgency, Tachycardia, leukocytosis and complains of neck pain but there is no neck stiffness on exam. CT head showed large bilateral mastoid effusions, R>L and fluid in right middle ear cavity suggestive of possible otomastoiditis. She states she is really tired today because she had "that scan" and it was really loud. She wants nursing to come and give her a bed ansari because she doesn' t want to get out of bed. Physical therapy also stopped to see her but she refused to be evaluated. denies CP, SOB, abdominal pain, one numbness, tingling , weakness, N, V. falls. Objective Date Time Temp Pulse Resp B/P (MAP) Pulse Ox O2 Delivery O2 Flow Rate FiO2 05/13/17 12:00 93 Room Air 05/13/17 11:32 36.5 72 20 169/77 (107) 93 Room Air 05/13/17 08:00 91 Room Air 05/13/17 07:21 36.7 74 20 175/83 (113) 92 Room Air 05/13/17 04:23 36.9 106 20 167/77 (107) 91 Room Air 05/13/17 04:00 91 Room Air 05/12/17 23:59 92 Room Air 05/12/17 23:53 36.7 90 18 147/80 (102) 92 Room Air 05/12/17 20:00 Room Air 05/12/17 16:10 36.4 92 20 154/82 (106) 94 Room Air 05/12/17 16:00 Room Air Last 24 Hours Test 05/12/17 16:15 05/12/17 20:56 05/13/17 06:38 05/13/17 06:46 Bedside Glucose 176 mg/dl 201 mg/dl 119 mg/dl White Blood Count 9.37 K/uL Red Blood Count 4.08 M/uL Hemoglobin 12.6 g/dL Hematocrit 37.9 % Mean Corpuscular Volume 92.9 fL Mean Corpuscular Hemoglobin 30.9 pg Mean Corpuscular Hemoglobin Concent 33.2 g/dl Platelet Count 206 K/uL Mean Platelet Volume 11.0 fL Neutrophils (%) (Auto) 62.1 % Lymphocytes (%) (Auto) 25.1 % Monocytes (%) (Auto) 8.9 % Eosinophils (%) (Auto) 3.6 % Basophils (%) (Auto) 0.2 % Neutrophils # (Auto) 5.82 K/uL Lymphocytes # (Auto) 2.35 K/uL Monocytes # (Auto) 0.83 K/uL Eosinophils # (Auto) 0.34 K/uL Basophils # (Auto) 0.02 K/uL RDW Standard Deviation 42.1 fL RDW Coefficient of Variation 12.4 % Immature Granulocyte % (Auto) 0.1 % Immature Granulocyte # (Auto) 0.01 K/uL Sodium Level 142 mmol/L Potassium Level 4.4 mmol/L Chloride Level 111 mmol/L Carbon Dioxide Level 26 mmol/L Anion Gap 5.0 mmol/L Blood Urea Nitrogen 13 mg/dl Creatinine 0.99 mg/dl Est Creatinine Clear Calc Drug Dose 45.5 ml/min Estimated GFR () 59.4 Estimated GFR (Non- 51.2 BUN/Creatinine Ratio 13.6 Random Glucose 131 mg/dl Calcium Level 8.4 mg/dl Magnesium Level 1.5 mg/dl Test 05/13/17 10:46 Bedside Glucose 180 mg/dl Imaging: MRI brain combo- Senescent changes as above with no acute intracranial abnormality. Large mastoid effusions. Correlate clinically for evidence of mastoiditis. carotid doppler- No hemodynamically significant stenosis seen within the carotid arteries. Exam: Physical Exam: Constitutional: appearance nourished, obese Ears, Nose, Mouth and Throat: mucous membranes moist, no injection and skin normal, eyes normal Cardiovascular: normal S-1 and S-2 and regular rate and rhythm Respiratory: course breath sound Musculoskeletal: none pitting peripheral edema Skin: no stigmata of neurocutaneous disease noted and normal and intact Eyes: extraocular muscles intact (EOMI) and pupils equal, round and reactive to light (PERRL) NEUROLOGIC EXAMINATION: Mental status: Alert and interactive Oriented to person, still unable to identify hospital where she is without prompting Speech fluent with no evidence of aphasia Cranial Nerves smile eye brow raise symmetric Sensory: intact to light touch Coordination: finger to nose without bi pass Gait/Stance: Posture lying in bed Strength: 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 ACHS SC 05/11/17 07:00 06/10/17 06:59 05/13/17 13:01 4 UNITS Glucose (Glucose 40% Gel) 15-30 GRAMS 15 GRAMS... UD PRN PO 05/11/17 00:30 06/10/17 00:29 Glucose (Glucose Chew Tab) 4-8 Tablets 4 Tabl... UD PRN PO 05/11/17 00:30 06/10/17 00:29 Dextrose (Dextrose 50% 50ML Syringe) 25-50ML OF 50% DW IV FOR... UD PRN IV 05/11/17 00:30 06/10/17 00:29 Glucagon (Glucagon Inj) 1 mg UD PRN SQ 05/11/17 00:30 06/10/17 00:29 Labetalol HCl (Normodyne IV) 10 mg Q6H PRN IV 05/11/17 00:30 06/10/17 00:29 Aspirin (Ecotrin Tab) 325 mg DAILY PO 05/11/17 09:00 06/10/17 08:59 05/13/17 09:24 325 MG Docusate Sodium (coLACE CAP) 100 mg BID PO 05/11/17 09:00 06/10/17 08:59 05/13/17 09:25 100 MG Lisinopril (Zestril Tab) 20 mg DAILY PO 05/11/17 09:00 06/10/17 08:59 05/13/17 09:25 20 MG Simvastatin (Zocor Tab) 40 mg QPM PO 05/11/17 21:00 06/10/17 20:59 05/12/17 23:03 40 MG Pantoprazole Sodium (Protonix Tab) 40 mg QAM PO 05/11/17 09:00 06/10/17 08:59 05/13/17 09:24 40 MG Vancomycin HCl (Consult) 1 ea DAILY PRN N/A 05/11/17 01:03 06/10/17 01:02 Cefepime HCl 2000 mg/Dextrose 112.5 ml @ 225 mls/hr Q12H IV 05/12/17 16:00 05/22/17 15:59 05/13/17 05:01 225 MLS/HR Vancomycin HCl 1500 mg/Sodium Chloride 530 ml @ 200 mls/hr Q24H IV 05/12/17 21:00 05/21/17 20:59 05/12/17 21:07 200 MLS/HR Gadobutrol (Gadavist) 9.5 mmol UD PRN IV 05/12/17 20:45 05/16/17 20:44 Impression 86 year old with extensive PMH with acute confusion now resolved and back to baseline Plan 1. MRI combo brain- no acute IC findings 2. CT head - possible mastoiditis noted- likely chronic findings 3 currently ID consult tapering antibiotics 4. PT/OT speech for discharge needs 5. optimize DL, DM, HTN 6. carotid doppler -No hemodynamically significant stenosis seen within the carotid arteries. 7. TTE done pending read 8. CXR possible right sided effusion 9. will likely need rehab prior to returning home 10. ENT consult likely chronic finding and will see her as out patient. I have seen and discussed above patient with Dr Yandel Randle, neurology Above reviewed patient remains pleasantly confused likely her baseline and the issue of the mastoids etc has been addressed and lp seems unnecessary to me but will defer to infectious disease on this issue Yandel Randle MD
--- NOTE | 2017-05-13 18:02 | Progress Note ---
Internal Med Progress Note Date of Service: May 13, 2017. Provider Documentation: SUBJECTIVE: The patient was seen and examined Denies any hallucinations or delusions but admits to have recent memory impairment Minimal confusion Back to her baseline as per Daughter Does not want to go to detention but to home OBJECTIVE: Vital Signs-as noted below Exam: General-No distress at rest Sitting on a chair comfortably Eyes-normal ENT-normal Neck-Supple Lungs-Clear to ausucltate bilaterally Decreased breath sound bilaterally Heart-Regular,no murmur appreciated Abdomen-Benign,no masses,bowel sound present Extremities-Trace edema bilaterally Neuro-AA Pleasantly confused Generally weak and lethargic NO focal Neuro deficit No Neck stiffness Lab data as noted below. ASSESSMENT & PLAN: Encephalopathy:-Improved to her baseline Unclear etiology. Presented with confusion, leukocytosis, headache and neck pain DD:Meningitis/encephalitis/drug induced/ Sepsis/H/O Psychosis/ Seizure CT head: showed possible otomastoiditis and no other acute findings. Started on broad spectrum IV antibiotics/antiviral Neuro checks -no acute finding, Doubt any meningitis Hold Lorazepam and Detrol for now Blood cultures-Negative UA: normal and CXR did not show any pneumonia Lyme titer negative EEG-Negative MRI::1. Senescent changes as above with no acute intracranial abnormality. 2. Large mastoid effusions. Correlate clinically for evidence of mastoiditis. Check TSH, [id number] Neurology consulted -appreciate Input Clinically much better -back to her baseline Appreciate ENT evaluation -feels chronic finding -will need OP follow up and antibiotic as per ID Await ID recommendation regarding use of antibiotic Hypertensive Urgency: Initially very high 202/98 Treated with Nicardipine ggt in ED BP remains elevated Continue lisinopril -will increase Lisinopril to BID DM II Will hold oral diabetic meds Last A1c:6.3 on 05/03/17 ISS, basal Insulin, Accu checks, Diabetic diet HLP: continue Zocor CKD III: Cr:1.36 at baseline Monitor renal function-normalized H/O PUD S/P partial gastrectomy in 1970s continue PPI H/O Depression and Atypical Psychosis Hold Lorazepam secondary to AMS May need psychiatry evaluation Overactive Bladder; Hold Detrol for now DVT Px: SCDs for now Code Status: Full Code as per my discussion with patient's son DISPOSITION PT/OT Likely to discharge in a day or two Wants to go home Vital Signs: Date Time Temp Pulse Resp B/P (MAP) Pulse Ox O2 Delivery O2 Flow Rate FiO2 05/13/17 16:00 Room Air 05/13/17 15:51 36.4 85 18 188/91 (123) 91 Room Air 177/90 (119) 05/13/17 12:00 93 Room Air 05/13/17 11:32 36.5 72 20 169/77 (107) 93 Room Air 05/13/17 08:00 91 Room Air 05/13/17 07:21 36.7 74 20 175/83 (113) 92 Room Air 05/13/17 04:23 36.9 106 20 167/77 (107) 91 Room Air 05/13/17 04:00 91 Room Air 05/12/17 23:59 92 Room Air 05/12/17 23:53 36.7 90 18 147/80 (102) 92 Room Air 05/12/17 20:00 Room Air Lab Results: Results Past 24 Hours Test 05/12/17 20:56 05/13/17 06:38 05/13/17 06:46 05/13/17 10:46 Range/Units Bedside Glucose 201 119 180 70-90 mg/dl White Blood Count 9.37 4.8-10.8 K/uL Red Blood Count 4.08 4.2-5.4 M/uL Hemoglobin 12.6 12.0-16.0 g/dL Hematocrit 37.9 37-47 % Mean Corpuscular Volume 92.9 80-100 fL Mean Corpuscular Hemoglobin 30.9 25-34 pg Mean Corpuscular Hemoglobin Concent 33.2 32-36 g/dl Platelet Count 206 130-400 K/uL Mean Platelet Volume 11.0 7.4-10.4 fL Neutrophils (%) (Auto) 62.1 % Lymphocytes (%) (Auto) 25.1 % Monocytes (%) (Auto) 8.9 % Eosinophils (%) (Auto) 3.6 % Basophils (%) (Auto) 0.2 % Neutrophils # (Auto) 5.82 1.4-6.5 K/uL Lymphocytes # (Auto) 2.35 1.2-3.4 K/uL Monocytes # (Auto) 0.83 0.11-0.59 K/uL Eosinophils # (Auto) 0.34 0-0.5 K/uL Basophils # (Auto) 0.02 0-0.2 K/uL RDW Standard Deviation 42.1 36.4-46.3 fL RDW Coefficient of Variation 12.4 11.5-14.5 % Immature Granulocyte % (Auto) 0.1 % Immature Granulocyte # (Auto) 0.01 0.00-0.02 K/uL Sodium Level 142 136-145 mmol/L Potassium Level 4.4 3.5-5.1 mmol/L Chloride Level 111 98-107 mmol/L Carbon Dioxide Level 26 21-32 mmol/L Anion Gap 5.0 3-11 mmol/L Blood Urea Nitrogen 13 7-18 mg/dl Creatinine 0.99 0.60-1.20 mg/dl Est Creatinine Clear Calc Drug Dose 45.5 ml/min Estimated GFR () 59.4 Estimated GFR (Non- 51.2 BUN/Creatinine Ratio 13.6 10-20 Random Glucose 131 70-99 mg/dl Calcium Level 8.4 8.5-10.1 mg/dl Magnesium Level 1.5 1.8-2.4 mg/dl Test 05/13/17 15:56 Range/Units Bedside Glucose 163 70-90 mg/dl
[2017-05-13] MEDS ORDERED: MAGNESIUM SULFATE 1GM / D5W 1 GM in PREMIXED IN D5W 100 ML IV STA (18:21)
[2017-05-13] MEDS: ACETAMINOPHEN 325 MG TAB PO PRN (19:03)
[2017-05-13] MEDS ORDERED: VANCOMYCIN TROUGH ONE (20:30)
--- NOTE | 2017-05-13 21:08 | Infectious Disease Progress Nt ---
Progress Note Date of Service May 13, 2017. Subjective Pt evaluation today including: conversation w/ patient, physical exam, chart review, lab review, review of studies, conversation w/ qa consultant, review of inpatient medication list Patient reportedly back at baseline. ENT consultation noted. No fever. Blood cultures remain negative. All Other Systems: Reviewed and Negative Medications Current Inpatient Medications Medications (Trade) Dose Ordered Sig/Tawny Route Start Time Stop Time Status Last Admin Dose Admin Sodium Chloride 1,000 ml @ 50 mls/hr Q20H IV 05/11/17 01:43 06/10/17 01:42 05/13/17 05:01 50 MLS/HR Acetaminophen (Tylenol Tab) 650 mg Q4H PRN PO 05/11/17 00:30 06/10/17 00:29 05/13/17 19:03 650 MG Ondansetron HCl (Zofran Inj) 4 mg Q6H PRN IV 05/11/17 00:30 06/10/17 00:29 Insulin Glargine (Lantus Solostar Pen) 5 units Q12 SC 05/11/17 09:00 06/10/17 08:59 05/13/17 08:55 5 UNITS Insulin Aspart (novoLOG ASPART) SLIDING SCALE If C... ACHS SC 05/11/17 07:00 06/10/17 06:59 05/13/17 17:21 3 UNITS Glucose (Glucose 40% Gel) 15-30 GRAMS 15 GRAMS... UD PRN PO 05/11/17 00:30 06/10/17 00:29 Glucose (Glucose Chew Tab) 4-8 Tablets 4 Tabl... UD PRN PO 05/11/17 00:30 06/10/17 00:29 Dextrose (Dextrose 50% 50ML Syringe) 25-50ML OF 50% DW IV FOR... UD PRN IV 05/11/17 00:30 06/10/17 00:29 Glucagon (Glucagon Inj) 1 mg UD PRN SQ 05/11/17 00:30 06/10/17 00:29 Labetalol HCl (Normodyne IV) 10 mg Q6H PRN IV 05/11/17 00:30 06/10/17 00:29 Aspirin (Ecotrin Tab) 325 mg DAILY PO 05/11/17 09:00 06/10/17 08:59 05/13/17 09:24 325 MG Docusate Sodium (coLACE CAP) 100 mg BID PO 05/11/17 09:00 06/10/17 08:59 05/13/17 09:25 100 MG Simvastatin (Zocor Tab) 40 mg QPM PO 05/11/17 21:00 06/10/17 20:59 05/12/17 23:03 40 MG Pantoprazole Sodium (Protonix Tab) 40 mg QAM PO 05/11/17 09:00 06/10/17 08:59 05/13/17 09:24 40 MG Vancomycin HCl (Consult) 1 ea DAILY PRN N/A 05/11/17 01:03 06/10/17 01:02 Cefepime HCl 2000 mg/Dextrose 112.5 ml @ 225 mls/hr Q12H IV 05/12/17 16:00 05/22/17 15:59 05/13/17 15:51 225 MLS/HR Vancomycin HCl 1500 mg/Sodium Chloride 530 ml @ 200 mls/hr Q24H IV 05/12/17 21:00 05/21/17 20:59 05/12/17 21:07 200 MLS/HR Gadobutrol (Gadavist) 9.5 mmol UD PRN IV 05/12/17 20:45 05/16/17 20:44 Lisinopril (Zestril Tab) 20 mg BID PO 05/13/17 21:00 06/10/17 08:59 Objective Vital Signs Date Time Temp Pulse Resp B/P (MAP) Pulse Ox O2 Delivery O2 Flow Rate FiO2 05/13/17 20:21 Room Air 05/13/17 16:00 Room Air 05/13/17 15:51 36.4 85 18 188/91 (123) 91 Room Air 177/90 (119) 05/13/17 12:00 93 Room Air 05/13/17 11:32 36.5 72 20 169/77 (107) 93 Room Air 05/13/17 08:00 91 Room Air 05/13/17 07:21 36.7 74 20 175/83 (113) 92 Room Air 05/13/17 04:23 36.9 106 20 167/77 (107) 91 Room Air 05/13/17 04:00 91 Room Air 05/12/17 23:59 92 Room Air 05/12/17 23:53 36.7 90 18 147/80 (102) 92 Room Air Physical Exam General Appearance: WD/WN, no apparent distress Eyes: normal inspection, sclerae normal ENT: hearing grossly normal, pharynx normal Neck: supple, no adenopathy, trachea midline Respiratory/Chest: chest non-tender, lungs clear, normal breath sounds, no respiratory distress Cardiovascular: regular rate, rhythm, no gallop, no murmur Abdomen: normal bowel sounds, non tender, soft, no organomegaly Extremities: non-tender, no calf tenderness Neurologic/Psychiatric: alert, oriented x 3 Skin: normal color, no rash Lymphatic: no adenopathy (0 0) Laboratory Results Last 24 Hours Test 05/13/17 06:38 05/13/17 06:46 05/13/17 10:46 05/13/17 15:56 Bedside Glucose 119 mg/dl 180 mg/dl 163 mg/dl White Blood Count 9.37 K/uL Red Blood Count 4.08 M/uL Hemoglobin 12.6 g/dL Hematocrit 37.9 % Mean Corpuscular Volume 92.9 fL Mean Corpuscular Hemoglobin 30.9 pg Mean Corpuscular Hemoglobin Concent 33.2 g/dl Platelet Count 206 K/uL Mean Platelet Volume 11.0 fL Neutrophils (%) (Auto) 62.1 % Lymphocytes (%) (Auto) 25.1 % Monocytes (%) (Auto) 8.9 % Eosinophils (%) (Auto) 3.6 % Basophils (%) (Auto) 0.2 % Neutrophils # (Auto) 5.82 K/uL Lymphocytes # (Auto) 2.35 K/uL Monocytes # (Auto) 0.83 K/uL Eosinophils # (Auto) 0.34 K/uL Basophils # (Auto) 0.02 K/uL RDW Standard Deviation 42.1 fL RDW Coefficient of Variation 12.4 % Immature Granulocyte % (Auto) 0.1 % Immature Granulocyte # (Auto) 0.01 K/uL Sodium Level 142 mmol/L Potassium Level 4.4 mmol/L Chloride Level 111 mmol/L Carbon Dioxide Level 26 mmol/L Anion Gap 5.0 mmol/L Blood Urea Nitrogen 13 mg/dl Creatinine 0.99 mg/dl Est Creatinine Clear Calc Drug Dose 45.5 ml/min Estimated GFR () 59.4 Estimated GFR (Non- 51.2 BUN/Creatinine Ratio 13.6 Random Glucose 131 mg/dl Calcium Level 8.4 mg/dl Magnesium Level 1.5 mg/dl Test 05/13/17 19:49 05/13/17 20:38 Bedside Glucose 190 mg/dl Assessment and Plan 86-year-old female with diabetes now presents with acute change in mental status with findings of possible right otomastoiditis on CT scanning. Typical pathogens include Staph aureus, Pseudomonas, as well as strep pneumoniae, Haemophilus, and other Gram-negative. All cultures negative, patient improved. Recommend transition to oral Abx tomorrow, and would consider Bactrim plus levofloxacin. Will discuss.
[2017-05-13] MEDS: SIMVASTATIN 40 MG TAB PO SCH (21:37)
--- NOTE | 2017-05-13 21:51 | Pharmacy Progress Note ---
Pharmacy Abx Dose Short Note Date of Service May 13, 2017. Assessment & Plan Assessment 86 year old female receiving vancomycin for treatment of encephalopathym possible meningitis Day # 10/02 of antimicrobial therapy. Plan Vancomycin * Trough level of 18.1 mcg/mL is therapeutic. * Continue dose of 1500 mg IV every 24 hours. * Goal trough level: 15 to 20 mcg/mL * Next Trough or random level will be ordered in a few days. * * Pharmacy will continue to follow and will adjust dose/frequency as necessary. Thank you.
[2017-05-13] MEDS: VANCOMYCIN INJ 1,500 MG in SODIUM CHLORIDE 0.9% 500ML 500 ML IV SCH (22:09)
[2017-05-14] VITALS (7 sets, daily range): BP systolic 127–195; BP diastolic 74–97; PULSE 77–97; TEMP 36.5–36.8; O2SAT 91–94
[2017-05-14] MEDS: CEFEPIME IV 2000 MG in DEXTROSE 5% 100ML IV SCH ×2 (04:57→16:16)
[2017-05-14] MEDS: ACETAMINOPHEN 325 MG TAB PO PRN ×2 (06:19→21:24)
[2017-05-14] MEDS: LISINOPRIL 20 MG TAB PO SCH ×2 (08:38→21:10)
[2017-05-14] MEDS: PANTOprazole SOD 40 MG TAB PO SCH (08:38)
[2017-05-14] MEDS: DOCUSATE SODIUM 100 MG CAP PO SCH ×2 (08:38→21:10)
[2017-05-14] MEDS: ASPIRIN 325 MG ECTAB PO SCH (08:38)
[2017-05-14] MEDS: INSULIN ASPART 100 UNITS/ML 3 ML PEN SC SCH ×4 (08:40→21:12)
[2017-05-14] MEDS: INSULIN GLARGINE SOLOSTAR 100 UNITS/ML 3 ML PEN SC SCH ×2 (08:41→21:12)
[2017-05-14] MEDS: SODIUM CHLORIDE 0.9% 1000ML 1,000 ML IV SCH ×2 (08:42→08:43)
--- NOTE | 2017-05-14 12:48 | Neurology Progress Notes ---
Neurology Progress Note Date of Service May 14, 2017. Talat Mcbride is an 86 year old female with a PMH of DM II, DL, CKD III, PUD S/P partial gastrectomy in , HTN, depression and Atypical Psychosis. She presented with a mental status change. Son reported to ED staff he found her confused at around 3pm. She is complaining of severe headache and she took Ibuprofen which helped with headache. Son checked her blood sugar was 259. She had a UTI 1 week ago and completed antibiotics. denies falls, change of medications, LOC, fever, N,V, abd pain, diarrhea. She continued to be confused in the ED and didn't know her sons name. She was found to have Hypertensive Urgency, Tachycardia, leukocytosis and complains of neck pain but there is no neck stiffness on exam. CT head showed large bilateral mastoid effusions, R>L and fluid in right middle ear cavity suggestive of possible otomastoiditis. She states she is still tired but she was up walking around the bed and to the bathroom today. she is sitting in bedside chair eating lunch. denies CP, SOB, abdominal pain, one numbness, tingling, weakness, N, V. falls. Objective Date Time Temp Pulse Resp B/P (MAP) Pulse Ox O2 Delivery O2 Flow Rate FiO2 05/14/17 08:30 Nasal Cannula 2.0 05/14/17 07:15 36.7 86 20 145/83 (103) 94 Nasal Cannula 2.0 05/14/17 00:02 36.8 83 20 127/89 (102) 91 Room Air 05/14/17 00:00 Room Air 05/13/17 22:11 70 143/80 (101) 05/13/17 20:21 Room Air 05/13/17 16:00 Room Air 05/13/17 15:51 36.4 85 18 188/91 (123) 91 Room Air 177/90 (119) Last 24 Hours Test 05/13/17 15:56 05/13/17 19:49 05/13/17 20:38 05/14/17 07:35 Bedside Glucose 163 mg/dl 190 mg/dl 112 mg/dl Vancomycin Level Trough 18.1 mcg/ml Test 05/14/17 11:16 Bedside Glucose 190 mg/dl Imaging: no new imaging Exam: Physical Exam: Constitutional: appearance nourished, healthy and obese Ears, Nose, Mouth and Throat: mucous membranes moist, no injection and skin normal, eyes normal Cardiovascular: normal S-1 and S-2 and regular rate and rhythm Respiratory: course breath sounds Musculoskeletal: non pitting peripheral edema Skin: no stigmata of neurocutaneous disease noted and normal and intact Eyes: extraocular muscles intact (EOMI) and pupils equal, round and reactive to light (PERRL) NEUROLOGIC EXAMINATION: Mental status: Alert and interactive Oriented [facility], 2016 Oriented to person Speech fluent with no evidence of aphasia Cranial Nerves smile eye brow raise symmetric, tongue midline Sensory: no deficit to light touch Coordination: finger to nose without bi pass or tremor Gait/Stance: Posture sitting in bedside chair Motor: Negative for pronator drift of out stretched arms with eyes closed. 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 hip flex plantar flex ext 5/5 bilaterally Current Inpatient Medications Medications (Trade) Dose Ordered Sig/Tawny Route Start Time Stop Time Status Last Admin Dose Admin Sodium Chloride 1,000 ml @ 50 mls/hr Q20H IV 05/11/17 01:43 06/10/17 01:42 05/14/17 08:43 50 MLS/HR Acetaminophen (Tylenol Tab) 650 mg Q4H PRN PO 05/11/17 00:30 06/10/17 00:29 05/14/17 06:19 650 MG Ondansetron HCl (Zofran Inj) 4 mg Q6H PRN IV 05/11/17 00:30 06/10/17 00:29 Insulin Glargine (Lantus Solostar Pen) 5 units Q12 SC 05/11/17 09:00 06/10/17 08:59 05/14/17 08:41 5 UNITS Insulin Aspart (novoLOG ASPART) SLIDING SCALE If C... ACHS SC 05/11/17 07:00 06/10/17 06:59 05/14/17 08:40 3 UNITS Glucose (Glucose 40% Gel) 15-30 GRAMS 15 GRAMS... UD PRN PO 05/11/17 00:30 06/10/17 00:29 Glucose (Glucose Chew Tab) 4-8 Tablets 4 Tabl... UD PRN PO 05/11/17 00:30 11/16/17 00:29 Dextrose (Dextrose 50% 50ML Syringe) 25-50ML OF 50% DW IV FOR... UD PRN IV 05/11/17 00:30 06/10/17 00:29 Glucagon (Glucagon Inj) 1 mg UD PRN SQ 05/11/17 00:30 06/10/17 00:29 Labetalol HCl (Normodyne IV) 10 mg Q6H PRN IV 05/11/17 00:30 06/10/17 00:29 Aspirin (Ecotrin Tab) 325 mg DAILY PO 05/11/17 09:00 06/10/17 08:59 05/14/17 08:38 325 MG Docusate Sodium (coLACE CAP) 100 mg BID PO 05/11/17 09:00 06/10/17 08:59 05/14/17 08:38 100 MG Simvastatin (Zocor Tab) 40 mg QPM PO 05/11/17 21:00 06/10/17 20:59 05/13/17 21:37 40 MG Pantoprazole Sodium (Protonix Tab) 40 mg QAM PO 05/11/17 09:00 06/10/17 08:59 05/14/17 08:38 40 MG Vancomycin HCl (Consult) 1 ea DAILY PRN N/A 05/11/17 01:03 06/10/17 01:02 Cefepime HCl 2000 mg/Dextrose 112.5 ml @ 225 mls/hr Q12H IV 05/12/17 16:00 05/22/17 15:59 05/14/17 04:57 225 MLS/HR Vancomycin HCl 1500 mg/Sodium Chloride 530 ml @ 200 mls/hr Q24H IV 05/12/17 21:00 05/21/17 20:59 05/13/17 22:09 200 MLS/HR Gadobutrol (Gadavist) 9.5 mmol UD PRN IV 05/12/17 20:45 05/16/17 20:44 Lisinopril (Zestril Tab) 20 mg BID PO 05/13/17 21:00 06/10/17 08:59 05/14/17 08:38 20 MG Impression 86 year old with extensive PMH with acute confusion now resolved and back to baseline Plan 1. MRI combo brain- no acute IC findings 2. CT head - possible mastoiditis noted- likely chronic findings 3 currently ID consult tapering antibiotics 4. PT/OT speech for discharge needs 5. optimize DL, DM, HTN 6. carotid doppler -No hemodynamically significant stenosis seen within the carotid arteries. 7. TTE done pending read 8. CXR possible right sided effusion 9. will likely need rehab prior to returning home 10. ENT consult likely chronic finding and will see her as out patient. 11. will sign off for now will be available for questions concerns. I have seen and discussed above patient with Dr Yandel Randle, neurology Patient back to baseline according to family and is going home tomorrow Neurology does not need to see in follow up outpatient unless pcp would want us to do so Yandel Randle MD
--- NOTE | 2017-05-14 14:09 | Progress Note ---
Internal Med Progress Note Date of Service: May 14, 2017. Provider Documentation: SUBJECTIVE: Seen and examined at bedside States feeling very tired Refuses Rehab placement and prefers to be discharged home Mental status now at baseline Denies Chest pain, SOB, abd pain, dizziness States she does not feel ready to be discharged yet OBJECTIVE: Vital Signs-as noted below Physical Exam: General Appearance:Moderately built and nourished, no apparent distress Head: normocephalic, Atraumatic Eyes: normal inspection, EOMI, PERRL Neck: supple, Trachea midline Respiratory/Chest: Normal breath sounds, CTA Cardiovascular: S1, S2, No murmur Abdomen/GI:Soft, Non tender, Bowel sounds present Extremities/Musculoskelatal:normal inspection, B/L trace edema Neurologic/Psych:AAOX3, grossly no focal neurological deficits Skin: normal color, warm Lab data as noted below. ASSESSMENT & PLAN: Encephalopathy: Improved to baseline Unclear etiology. Presented with confusion, leukocytosis, headache and neck pain DD:Meningitis/encephalitis/drug induced/ Sepsis/H/O Psychosis/ Seizure CT head: showed possible otomastoiditis and no other acute findings. Continue Vanco and Cefepime per ID. Noted plan to be transitioned to PO Abx Neuro checks Doubt any meningitis Hold Lorazepam and Detrol for now Blood cultures-Negative Lyme titer negative EEG:Negative MRI::1. Senescent changes as above with no acute intracranial abnormality. 2. Large mastoid effusions. Correlate clinically for evidence of mastoiditis. TSH, B12:normal Appreciate Neurology Input Appreciate ENT evaluation -feels chronic finding -will need OP follow up and antibiotic as per ID Continue current management Hypertensive Urgency: BP better Treated with Nicardipine ggt in ED continue lisinopril: dose increased to BID DM II Will hold oral diabetic meds Last A1c:6.3 on 05/03/17 ISS, basal Insulin, Accu checks, Diabetic diet HLP: continue Zocor CKD III: Cr at baseline Monitor renal function H/O PUD S/P partial gastrectomy in 1970s continue PPI H/O Depression and Atypical Psychosis Hold Lorazepam secondary to AMS Overactive Bladder; Hold Detrol for now DVT Px: SCDs for now Code Status: Full Code as per my discussion with patient's son DISPOSITION PT/OT Plan to discharge home tomorrow.Patient refuses Rehab placement May need Home Health arranged Vital Signs: Date Time Temp Pulse Resp B/P (MAP) Pulse Ox O2 Delivery O2 Flow Rate FiO2 05/14/17 08:30 Nasal Cannula 2.0 05/14/17 07:15 36.7 86 20 145/83 (103) 94 Nasal Cannula 2.0 05/14/17 00:02 36.8 83 20 127/89 (102) 91 Room Air 05/14/17 00:00 Room Air 05/13/17 22:11 70 143/80 (101) 05/13/17 20:21 Room Air 05/13/17 16:00 Room Air 05/13/17 15:51 36.4 85 18 188/91 (123) 91 Room Air 177/90 (119) Lab Results: Results Past 24 Hours Test 05/13/17 15:56 05/13/17 19:49 05/13/17 20:38 05/14/17 07:35 Range/Units Bedside Glucose 163 190 112 70-90 mg/dl Vancomycin Level Trough 18.1 SEE COMMENT mcg/ml Test 05/14/17 11:16 Range/Units Bedside Glucose 190 70-90 mg/dl
[2017-05-14] MEDS ORDERED: AMLODIPINE BESYLATE 5 MG TAB PO ONE (16:30)
[2017-05-14] MEDS: SIMVASTATIN 40 MG TAB PO SCH (21:09)
[2017-05-14] MEDS: VANCOMYCIN INJ 1,500 MG in SODIUM CHLORIDE 0.9% 500ML 500 ML IV SCH (21:17)
[2017-05-14 22:58] LABS: URINE APPEARANCE CLOUDY (CLEAR); URINE BILIRUBIN NEG (NEG); URINE COLOR YELLOW; URINE NITRITE NEG (NEG); URINE SPECIFIC GRAVITY 1.012 (1.000-1.030); UROBILINOGEN NEG (NEG); ZZUR CULT IF INDIC CLEAN CATCH YES
[2017-05-14 23:00] LABS: MANUAL MICROSCOPIC REQUIRED? NO; REVIEW REQ? YES
[2017-05-15 00:06] VITALS: BP 185/46; PULSE 94; TEMP 36.8; O2SAT 91
[2017-05-15 02:16] VITALS: BP 142/69; PULSE 98
[2017-05-15 02:21] VITALS: O2SAT 88; O2SAT 92
[2017-05-15] MEDS: CEFEPIME IV 2000 MG in DEXTROSE 5% 100ML IV SCH (04:54)
[2017-05-15 07:08] VITALS: BP 144/80; PULSE 71; TEMP 36.5; O2SAT 98
[2017-05-15 07:23] LABS: HEMATOCRIT 38.1 % (37-47); MEAN CELL VOLUME 93.2 fL (80-100); MEAN CORPUSCULAR HEMOGLOBIN 30.6 pg (25-34); MEAN CORPUSCULAR HGB CONC 32.8 g/dl (32-36); MEAN PLATELET VOLUME 11.1 fL (7.4-10.4); PLATELET COUNT 219 K/uL (130-400); RED BLOOD COUNT 4.09 M/uL (4.2-5.4); WHITE BLOOD COUNT 14.93 K/uL (4.8-10.8)
[2017-05-15 07:47] LABS: BUN/CREATININE RATIO 12.4 (10-20); CALCIUM 8.6 mg/dl (8.5-10.1); CREATININE 0.94 mg/dl (0.60-1.20); MAGNESIUM 1.6 mg/dl (1.8-2.4); POTASSIUM 4.4 mmol/L (3.5-5.1)
[2017-05-15] MEDS: LISINOPRIL 20 MG TAB PO SCH ×2 (08:09→19:30)
[2017-05-15] MEDS: DOCUSATE SODIUM 100 MG CAP PO SCH ×2 (08:09→19:30)
[2017-05-15] MEDS: PANTOprazole SOD 40 MG TAB PO SCH (08:09)
[2017-05-15] MEDS: ASPIRIN 325 MG ECTAB PO SCH (08:09)
[2017-05-15] MEDS: INSULIN ASPART 100 UNITS/ML 3 ML PEN SC SCH ×4 (08:13→20:32)
[2017-05-15] MEDS: INSULIN GLARGINE SOLOSTAR 100 UNITS/ML 3 ML PEN SC SCH ×2 (08:14→20:51)
[2017-05-15] MEDS ORDERED: LEVOFLOXACIN 500 MG TAB PO ONE (14:55)
--- NOTE | 2017-05-15 15:01 | Progress Note ---
Internal Med Progress Note Date of Service: May 15, 2017. Provider Documentation: SUBJECTIVE: The patient was seen and examined Denies any hallucinations or delusions but admits to have recent memory impairment Back to her baseline as per Daughter Does not want to go to [facility] but to home Remains stable OBJECTIVE: Vital Signs-as noted below Exam: General-No distress at rest Sitting on a chair comfortably Eyes-normal ENT-normal Neck-Supple Lungs-Clear to ausucltate bilaterally Decreased breath sound bilaterally Heart-Regular,no murmur appreciated Abdomen-Benign,no masses,bowel sound present Extremities-Trace edema bilaterally Neuro-AA Pleasantly confused Generally weak and lethargic NO focal Neuro deficit No Neck stiffness Lab data as noted below. ASSESSMENT & PLAN: Encephalopathy:-Improved to her baseline Unclear etiology. Presented with confusion, leukocytosis, headache and neck pain DD:Meningitis/encephalitis/drug induced/ Sepsis/H/O Psychosis/ Seizure CT head: showed possible otomastoiditis and no other acute findings. Started on broad spectrum IV antibiotics/antiviral Neuro checks -no acute finding, Doubt any meningitis Hold Lorazepam and Detrol for now Blood cultures-Negative ,UA: normal and CXR did not show any pneumonia,Lyme titer negative EEG-Negative MRI::1. Senescent changes as above with no acute intracranial abnormality. 2. Large mastoid effusions. Correlate clinically for evidence of mastoiditis. Check TSH, [id number] Neurology consulted -appreciate Input Clinically much better -back to her baseline Appreciate ENT evaluation -feels chronic finding -will need OP follow up and antibiotic as per ID Clinically a lot better Antibiotics changed to oral Continue PT/OT -likely discharge in a day or two Hypertensive Urgency: Initially very high 202/98 Treated with Nicardipine ggt in ED BP remains elevated Continue lisinopril -will increase Lisinopril to BID BP is controlled now DM II Will hold oral diabetic meds Last A1c:6.3 on 05/03/17 ISS, basal Insulin, Accu checks, Diabetic diet HLP: continue Zocor CKD III: Cr:1.36 at baseline Monitor renal function-normalized H/O PUD S/P partial gastrectomy in 1970s continue PPI H/O Depression and Atypical Psychosis Hold Lorazepam secondary to AMS No psychiatric evaluation now Overactive Bladder; Hold Detrol for now DVT Px: SCDs for now Code Status: Full Code as per my discussion with patient's son DISPOSITION PT/OT Likely discharge in a day or two Vital Signs: Date Time Temp Pulse Resp B/P (MAP) Pulse Ox O2 Delivery O2 Flow Rate FiO2 05/15/17 08:00 Room Air 05/15/17 07:08 36.5 71 18 144/80 (101) 98 Nasal Cannula 2.0 05/15/17 02:21 88 Room Air 05/15/17 02:21 92 Nasal Cannula 2.0 05/15/17 02:16 98 142/69 (93) 05/15/17 00:45 Room Air 2.0 05/15/17 00:06 36.8 94 17 185/46 (92) 91 Room Air 05/14/17 21:07 77 156/74 (101) 05/14/17 19:45 77 128/77 (94) 05/14/17 16:23 183/75 (111) 05/14/17 16:00 93 Room Air 05/14/17 15:42 36.5 97 18 195/97 (129) 93 Room Air Lab Results: Results Past 24 Hours Test 05/14/17 16:59 05/14/17 20:10 05/15/17 06:37 05/15/17 07:47 Range/Units Bedside Glucose 141 188 129 70-90 mg/dl White Blood Count 14.93 4.8-10.8 K/uL Red Blood Count 4.09 4.2-5.4 M/uL Hemoglobin 12.5 12.0-16.0 g/dL Hematocrit 38.1 37-47 % Mean Corpuscular Volume 93.2 80-100 fL Mean Corpuscular Hemoglobin 30.6 25-34 pg Mean Corpuscular Hemoglobin Concent 32.8 32-36 g/dl RDW Standard Deviation 41.6 36.4-46.3 fL RDW Coefficient of Variation 12.3 11.5-14.5 % Platelet Count 219 130-400 K/uL Mean Platelet Volume 11.1 7.4-10.4 fL Sodium Level 142 136-145 mmol/L Potassium Level 4.4 3.5-5.1 mmol/L Chloride Level 110 98-107 mmol/L Carbon Dioxide Level 28 21-32 mmol/L Anion Gap 4.0 3-11 mmol/L Blood Urea Nitrogen 12 7-18 mg/dl Creatinine 0.94 0.60-1.20 mg/dl Est Creatinine Clear Calc Drug Dose 47.9 ml/min Estimated GFR () 63.2 Estimated GFR (Non- 54.5 BUN/Creatinine Ratio 12.4 10-20 Random Glucose 133 70-99 mg/dl Calcium Level 8.6 8.5-10.1 mg/dl Magnesium Level 1.6 1.8-2.4 mg/dl Test 05/15/17 11:31 Range/Units Bedside Glucose 192 70-90 mg/dl
[2017-05-15 15:18] VITALS: BP 134/68; PULSE 73; TEMP 36.8; O2SAT 93
[2017-05-15] MEDS: ACETAMINOPHEN 325 MG TAB PO PRN ×2 (15:25→19:31)
--- NOTE | 2017-05-15 15:46 | ENT PROGRESS NOTE ---
DATE: 05/11/2017 DATE: 05/15/2017 DIAGNOSIS: Chronic otitis media. SUBJECTIVE: The patient feels improved. She still has the pain in the back of the neck, but denies earache or dizziness or pain in the ear or drainage from the ear. She does have somewhat decreased hearing in the right ear consistent with a cerumen impaction and otitis media with effusion. OBJECTIVE: The right ear canal still occluded with cerumen. The left tympanic membrane is retracted with fluid. IMPRESSION: Chronic otitis media with effusion and wax impaction of the right ear. PLAN: For cleaning up the right ear impaction in the office followed by audiogram. She may also need insertion of PE tubes. In any case, the patient has responded well to the IV antibiotics. No ENT surgical intervention is contemplated at this time.
[2017-05-15] MEDS: SIMVASTATIN 40 MG TAB PO SCH (19:30)
[2017-05-15] MEDS: SULFAMETHOXAZOLE/TRIMETHOPRIM DS 800/160MG TAB PO SCH (19:31)
[2017-05-15 23:59] VITALS: BP 144/82; PULSE 73; TEMP 36.7; O2SAT 93
[2017-05-16 07:41] VITALS: BP 166/90; PULSE 73; TEMP 36.5; O2SAT 96
[2017-05-16] MEDS: ASPIRIN 325 MG ECTAB PO SCH (08:31)
[2017-05-16] MEDS: PANTOprazole SOD 40 MG TAB PO SCH (08:31)
[2017-05-16] MEDS: SULFAMETHOXAZOLE/TRIMETHOPRIM DS 800/160MG TAB PO SCH (08:31)
[2017-05-16] MEDS: DOCUSATE SODIUM 100 MG CAP PO SCH (08:31)
[2017-05-16] MEDS: LISINOPRIL 20 MG TAB PO SCH (08:31)
[2017-05-16] MEDS: INSULIN GLARGINE SOLOSTAR 100 UNITS/ML 3 ML PEN SC SCH (08:36)
[2017-05-16] MEDS: INSULIN ASPART 100 UNITS/ML 3 ML PEN SC SCH ×2 (08:36→12:39)
--- NOTE | 2017-05-16 10:25 | Progress Note ---
Internal Med Progress Note Date of Service: May 16, 2017. Provider Documentation: SUBJECTIVE: The patient was seen and examined Denies any hallucinations or delusions but admits to have recent memory impairment Back to her baseline as per Daughter Does not want to go to residential but to home Talked to the Son Will discharge tome with HH OBJECTIVE: Vital Signs-as noted below Exam: General-No distress at rest Sitting on a chair comfortably Some neck discomfort Eyes-normal ENT-normal Neck-Supple Lungs-Clear to ausucltate bilaterally Decreased breath sound bilaterally Heart-Regular,no murmur appreciated Abdomen-Benign,no masses,bowel sound present Extremities-Trace edema bilaterally Neuro-AA Pleasantly confused Generally weak and lethargic NO focal Neuro deficit No Neck stiffness Lab data as noted below. ASSESSMENT & PLAN: Encephalopathy:-Improved to her baseline Unclear etiology. Presented with confusion, leukocytosis, headache and neck pain DD:Meningitis/encephalitis/drug induced/ Sepsis/H/O Psychosis/ Seizure CT head: showed possible otomastoiditis and no other acute findings. Started on broad spectrum IV antibiotics/antiviral Neuro checks -no acute finding, Doubt any meningitis Hold Lorazepam and Detrol for now Blood cultures-Negative ,UA: normal and CXR did not show any pneumonia,Lyme titer negative EEG-Negative MRI::1. Senescent changes as above with no acute intracranial abnormality. 2. Large mastoid effusions. Correlate clinically for evidence of mastoiditis. Check TSH, [id number] Neurology consulted -appreciate Input Clinically much better -back to her baseline Appreciate ENT evaluation -feels chronic finding -will need OP follow up and antibiotic as per ID Clinically a lot better Antibiotics changed to oral Remains stable Denies any symptoms Will discharge home today -Discussed with the Son Hypertensive Urgency: Initially very high 202/98 Treated with Nicardipine ggt in ED BP remains elevated Continue lisinopril -will increase Lisinopril to BID BP is minimally high this morning Expected to improve DM II Will hold oral diabetic meds Last A1c:6.3 on 05/03/17 ISS, basal Insulin, Accu checks, Diabetic diet HLP: continue Zocor CKD III: Cr:1.36 at baseline Monitor renal function-normalized H/O PUD S/P partial gastrectomy in 1970s continue PPI H/O Depression and Atypical Psychosis Hold Lorazepam secondary to AMS No psychiatric evaluation now Overactive Bladder; Hold Detrol for now DVT Px: SCDs for now Code Status: Full Code as per my discussion with patient's son DISPOSITION PT/OT Discharge home today Vital Signs: Date Time Temp Pulse Resp B/P (MAP) Pulse Ox O2 Delivery O2 Flow Rate FiO2 05/16/17 08:00 Room Air 05/16/17 07:41 36.5 73 20 166/90 (115) 96 Room Air 05/16/17 00:11 Room Air 2.0 05/15/17 23:59 36.7 73 16 144/82 (102) 93 Nasal Cannula 3.0 05/15/17 16:00 Room Air 05/15/17 15:18 36.8 73 16 134/68 (90) 93 Room Air Lab Results: Results Past 24 Hours Test 05/15/17 11:31 05/15/17 16:14 05/15/17 20:00 05/16/17 07:06 Range/Units Bedside Glucose 192 158 177 61 70-90 mg/dl Test 05/16/17 07:33 Range/Units Bedside Glucose 156 70-90 mg/dl
[2017-05-16] MEDS ORDERED: LEVOFLOXACIN 500 MG TAB PO SCH (11:00)
[2017-05-16] MEDS: ACETAMINOPHEN 325 MG TAB PO PRN (11:16)
[2017-05-16] MEDS ORDERED: VLTG EXT (12:18)
[2017-05-16] MEDS ORDERED: LVQ500 PO (12:18)
[2017-05-16] MEDS ORDERED: SULF-183 PO (12:18)
[2017-05-16] MEDS ORDERED: LCTX PO (12:18)
--- NOTE | 2017-05-16 12:24 | Discharge Instructions ---
Discharge Instructions Date of Service May 16, 2017. Admission Reason for Admission: Ams, Hypertensive Emegency Discharge Discharge Diagnosis / Problem: Metabolic Encephalopathy-Improved to baseline , Hypertensive Urgency Discharge Goals Goal(s): Prevent Disease Progression Activity Recommendations Activity Limitations: resume your previous activity (Take precaution to avoid fall) . Instructions / Follow-Up Instructions / Follow-Up Dr Adler on 05/20/17 at 11:00AM Current Hospital Diet Patient's current hospital diet: Diabetes Type 2 Diet, AHA Diet (Heart Healthy) Discharge Diet Recommended Diet: Diabetes Type 2 Diet Pending Studies Studies pending at discharge: no Laboratory Results Hemoglobin A1c Test 05/12/17 06:25 Range/Units Estimated Average Glucose 146 mg/dl Hemoglobin A1c 6.7 H 4.5-5.6 % Medical Emergencies . Who to Call and When: Medical Emergencies: If at any time you feel your situation is an emergency, please call 911 immediately. . Non-Emergent Contact Non-Emergency issues call your: Primary Care Provider . Past History Medical & Surgical History: (1) Benign hypertension (2) Depression (3) Diabetes mellitus (4) Chronic congestive heart failure (5) Altered mental status (6) Hypertensive emergency . "Provider Documentation" section prepared by Nilton Lucia. . VTE Core Measure Inpt VTE Proph given/why not?: SCD's
[2017-05-16 12:47] VITALS: BP 166/90; PULSE 73; TEMP 36.5; O2SAT 96
[2017-05-16] MEDS ORDERED: VANCOMYCIN TROUGH ONE (20:30)
[2017-05-16] MEDS ORDERED: DICLOFENAC SOD 1% GEL 100 GM TUBE EXT SCH (21:00)
--- NOTE | 2017-05-17 07:36 | Discharge Summary ---
Discharge Summary Date of Service May 17, 2017. Discharge Summary Admission Date: May 11, 2017 at 00:23 Discharge Date: May 16, 2017 Discharge Disposition: Home with services Principal Diagnosis: Metabolic Encephalopathy-Improved to baseline ,Hypertensive Urgency Secondary Diagnoses/Problems: PLease see H&P and Hospital progress note Consultations: Neurology,ID ,ENT Medication Reconciliation New Medications: Lactobacillus Acidophilus (Lactinex) Tab 2 TAB PO BID, #30 TAB Diclofenac Sod (Voltaren) 100 Appln/100 Gm Gel 1 APPLN EXT BID for 30 Days, #1 TUBE Levofloxacin (Levofloxacin) 500 Mg Tab 500 MG PO DAILY@11 for 5 Days, #5 TAB Sulfamethoxazole-Trimethoprim (Smz-Tmp Ds) 1 Tab Tab 1 TAB PO Q12 for 5 Days, #10 TAB Continued Medications: Acetaminophen (Tylenol) 325 Mg Tab 650 MG PO Q4H PRN, TAB Aspirin (Aspirin Ec) 325 Mg Tab 325 MG PO DAILY Docusate Sodium (Docusate Sodium) 100 Mg Cap 100 MG PO BID, CAP Furosemide (Lasix) 20 Mg Tab 20 MG PO DAILY PRN for PRN, TAB Insulin Glargine (Lantus Solostar) 100 Unit/Ml Inj 16 UNITS SC QAM, PEN Insulin Glargine (Lantus Solostar) 100 Unit/Ml Inj 18 UNITS SC QPM, PEN Lisinopril (Zestril) 20 Mg Tab 20 MG PO BID, TAB Lorazepam (Ativan) 0.5 Mg Tab 0.5 MG PO Q6H PRN, TAB Multivitamins/Minerals (Mvi With Minerals) Tab 1 TAB PO DAILY, TAB Omeprazole (Prilosec) 20 Mg Capcr 20 MG PO DAILY, CAP Potassium Chloride (Klor-Con M20) 20 Meq Tabcr 20 MEQ PO DAILY Repaglinide (Prandin) 2 Mg Tab 4 MG PO AC, TAB Take 15 min before meals. Simvastatin (Zocor) 40 Mg Tab 40 MG PO QPM, TAB Tolterodine Tartrate (Detrol LA) 4 Mg Capcr 4 MG PO DAILY, CAP 3 Refills Admission Information HPI (per Admitting provider): Patient is an 86 Yr female with PMH of DM II, HLP, CKD III, PUD S/P partial gastrectomy in , HTN, depression and Atypical Psychosis as per records presents with history of altered mental status. History is limited secondary to patient's mental status. As per the patient's son and ED staff, patient was noticed to be confused at around 3pm today. Patient complained of severe headache and she took Ibuprofen which helped with headache as per patient's son. Later, she seemed to be more confused and also complained of neck pain. Patient's son reports that he checked blood sugar and it was 259. She had a UTI 1 week ago and completed antibiotics as per family. No known history of head trauma, fall, LOC, Insect bite, fever, chills, nausea, vomiting, abd pain, diarrhea , no recent travel, change in meds. Currently while in ED patient continues to be confused but follows simple commands and is oriented to person. She was found to have Hypertensive Urgency, Tachycardia, leukocytosis and complains of neck pain but there is no neck stiffness on exam. CT head showed large bilateral mastoid effusions, R>L and fluid in right middle ear cavity suggestive of possible otomastoiditis. Past Medical/Surgical History Medical Problems: (1) Benign hypertension Status: Chronic (2) Cholecystectomy Status: Resolved (3) Chronic congestive heart failure Status: Chronic (4) Depression Status: Chronic (5) Diabetes mellitus Status: Chronic (6) Hyperlipidemia Status: Chronic (7) Myocardial infarction Status: Chronic (8) renal disease Status: Chronic Family History could not be obtained secondary to encephalopathy Social History Smoking Status: Never Smoker Alcohol Use: none Drug Use: none Marital Status: Occupational Status: retired Multi-Drug Resistant Organisms History of MDRO: No Allergies Coded Allergies: No Known Allergies (Verified , 01/21/13) Home Medications Scheduled Aspirin (Aspirin Ec), 325 MG PO DAILY Docusate Sodium (Docusate Sodium), 100 MG PO BID Insulin Glargine (Lantus Solostar), 16 UNITS SC QAM Insulin Glargine (Lantus Solostar), 18 UNITS SC QPM Lisinopril (Zestril), 20 MG PO DAILY Multivitamins/Minerals (Mvi With Minerals), 1 TAB PO DAILY Omeprazole (Prilosec), 20 MG PO DAILY Potassium Chloride (Klor-Con M20), 20 MEQ PO DAILY Repaglinide (Prandin), 4 MG PO AC Simvastatin (Zocor), 40 MG PO QPM Tolterodine Tartrate (Detrol LA), 4 MG PO DAILY Scheduled PRN Acetaminophen (Tylenol), 650 MG PO Q4H PRN Furosemide (Lasix), 20 MG PO DAILY PRN for PRN Lorazepam (Ativan), 0.5 MG PO Q6H PRN Review of Systems could not be obtained secondary to encephalopathy Physical Ex - H&P Physical Exam Vital Signs Date Time Temp Pulse Resp B/P (MAP) Pulse Ox O2 Delivery O2 Flow Rate FiO2 05/10/17 23:33 109 18 145/67 93 Room Air 05/10/17 22:46 173/82 05/10/17 22:36 94 Room Air 05/10/17 22:33 36.8 105 18 202/98 93 Room Air 05/10/17 22:24 102 General Appearance: WD/WN, no apparent distress, + pertinent finding (Confused , complains of neck pain, follows simple commands) Head: normocephalic, atraumatic Eyes: normal inspection, PERRL, EOMI ENT: hearing grossly normal Neck: supple, trachea midline, + pertinent finding (No neck stiffness) Respiratory/Chest: chest non-tender, lungs clear, no respiratory distress, no accessory muscle use, + decreased breath sounds Cardiovascular: regular rate, rhythm, no murmur, + tachycardia, + pertinent finding (1+ b/l edema) Abdomen/GI: normal bowel sounds, non tender, soft Back: normal inspection Extremities/Musculoskelatal: normal inspection, + pertinent finding (1+ b/l edema in stockings) Neurologic/Psych: alert, + pertinent finding (moves all extremities, grossly no focal deficits, but exam is limited secondary to encepalopathy, oriented only to person) Skin: normal color, warm/dry Diagnostics - H&P Diagnostics Laboratory Results Results Past 24 Hours Test 05/10/17 22:28 05/10/17 22:31 05/10/17 22:37 05/10/17 23:20 Range/Units Bedside Glucose 194 70-90 mg/dl Bedside Prothrombin Time INR 1.0 0.9-1.1 White Blood Count 14.20 4.8-10.8 K/uL Red Blood Count 4.51 4.2-5.4 M/uL Hemoglobin 13.8 12.0-16.0 g/dL Hematocrit 41.4 37-47 % Mean Corpuscular Volume 91.8 80-100 fL Mean Corpuscular Hemoglobin 30.6 25-34 pg Mean Corpuscular Hemoglobin Concent 33.3 32-36 g/dl Platelet Count 234 130-400 K/uL Mean Platelet Volume 10.8 7.4-10.4 fL Neutrophils (%) (Auto) 75.8 % Lymphocytes (%) (Auto) 16.6 % Monocytes (%) (Auto) 6.6 % Eosinophils (%) (Auto) 0.5 % Basophils (%) (Auto) 0.1 % Neutrophils # (Auto) 10.75 1.4-6.5 K/uL Lymphocytes # (Auto) 2.36 1.2-3.4 K/uL Monocytes # (Auto) 0.94 0.11-0.59 K/uL Eosinophils # (Auto) 0.07 0-0.5 K/uL Basophils # (Auto) 0.02 0-0.2 K/uL RDW Standard Deviation 41.0 36.4-46.3 fL RDW Coefficient of Variation 12.1 11.5-14.5 % Immature Granulocyte % (Auto) 0.4 % Immature Granulocyte # (Auto) 0.06 0.00-0.02 K/uL Prothrombin Time 11.3 9.0-12.0 SECONDS Prothromb Time International Ratio 1.1 0.9-1.1 Activated Partial Thromboplast Time 26.1 21.0-31.0 SECONDS Partial Thromboplastin Ratio 1.0 Sodium Level 134 136-145 mmol/L Potassium Level 4.9 3.5-5.1 mmol/L Chloride Level 102 98-107 mmol/L Carbon Dioxide Level 26 21-32 mmol/L Anion Gap 6.0 3-11 mmol/L Blood Urea Nitrogen 23 7-18 mg/dl Creatinine 1.36 0.60-1.20 mg/dl Est Creatinine Clear Calc Drug Dose 34.0 ml/min Estimated GFR () 40.5 Estimated GFR (Non- 34.9 BUN/Creatinine Ratio 17.2 10-20 Random Glucose 203 70-99 mg/dl Calcium Level 8.8 8.5-10.1 mg/dl Total Creatine Kinase 52 26-192 U/L Creatine Kinase MB 0.9 0.5-3.6 ng/ml Creatine Kinase MB Ratio 1.7 0-3.0 Troponin I < 0.015 0-0.045 ng/ml Microbiology Results 05/10/17 Blood Culture, Ordered Pending 05/10/17 Blood Culture, Ordered Pending Diagnostic Radiology CT head: 1. Age-related findings without acute intracranial abnormality. 2. Large bilateral mastoid effusions, right greater than left with fluid also present within the right middle ear cavity. Correlate clinically to exclude otomastoiditis. EKG EKG: Sinus Tachycardia, 1st degree AV block Impression - H&P Impression Assessment and Plan Encephalopathy: Unclear etiology. Presented with confusion, leukocytosis, headache and neck pain DD:Meningitis/encephalitis/drug induced/ ? Sepsis/H/O Psychosis/ Seizure CT head: showed possible otomastoiditis. Will start on broad spectrum IV antibiotics/antiviral check MRI head, EEG Neuro checks Will consulted Neurology May need LP if clinically warranted Will hold Lorazepam and Detrol for now Blood cultures UA: normal Lyme negative check TSH, B12 Hypertensive Urgency: Treated with Nicardipine ggt in ED BP improved Continue lisinopril monitor DM II Will hold oral diabetic meds Last A1c:6.3 on 05/03/17 ISS, basal Insulin, Accu checks, Diabetic diet HLP: continue zocor CKD III: Cr:1.36 at baseline Monitor renal function H/O PUD S/P partial gastrectomy in 1970s continue PPI H/O Depression and Atypical Psychosis Hold Lorazepam secondary to AMS Overactive Bladder; Hold Detrol for now DVT Px: SCDs for now Code Status: Full Code as per my discussion with patient's son Physical Exam (per Admitting): General Appearance: WD/WN, no apparent distress, + pertinent finding ( Confused, complains of neck pain, follows simple commands) Head: normocephalic, atraumatic Eyes: normal inspection, PERRL, EOMI ENT: hearing grossly normal Neck: supple, trachea midline, + pertinent finding (No neck stiffness) Respiratory/Chest: chest non-tender, lungs clear, no respiratory distress, no accessory muscle use, + decreased breath sounds Cardiovascular: regular rate, rhythm, no murmur, + tachycardia, + pertinent finding (1+ b/l edema) Abdomen/GI: normal bowel sounds, non tender, soft Back: normal inspection Extremities/Musculoskelatal: normal inspection, + pertinent finding (1+ b/l edema in stockings) Neurologic/Psych: alert, + pertinent finding (moves all extremities, grossly no focal deficits, but exam is limited secondary to encepalopathy, oriented only to person) Skin: normal color, warm/dry Hospital Course Encephalopathy:-Improved to her baseline Unclear etiology. Presented with confusion, leukocytosis, headache and neck pain DD:Meningitis/encephalitis/drug induced/ Sepsis/H/O Psychosis/ Seizure CT head: showed possible otomastoiditis and no other acute findings. Started on broad spectrum IV antibiotics/antiviral Neuro checks -no acute finding, Doubt any meningitis Hold Lorazepam and Detrol for now Blood cultures-Negative ,UA: normal and CXR did not show any pneumonia,Lyme titer negative EEG-Negative MRI::1. Senescent changes as above with no acute intracranial abnormality. 2. Large mastoid effusions. Correlate clinically for evidence of mastoiditis. Check TSH, [id number] Neurology consulted -appreciate Input Clinically much better -back to her baseline Appreciate ENT evaluation -feels chronic finding -will need OP follow up and antibiotic as per ID Clinically a lot better Antibiotics changed to oral Remains stable Denies any symptoms Will discharge home today -Discussed with the Son Hypertensive Urgency: Initially very high 202/98 Treated with Nicardipine ggt in ED BP remains elevated Continue lisinopril -will increase Lisinopril to BID BP is minimally high this morning Expected to improve DM II Will hold oral diabetic meds Last A1c:6.3 on 05/03/17 ISS, basal Insulin, Accu checks, Diabetic diet HLP: continue Zocor CKD III: Cr:1.36 at baseline Monitor renal function-normalized H/O PUD S/P partial gastrectomy in 1970s continue PPI H/O Depression and Atypical Psychosis Hold Lorazepam secondary to AMS No psychiatric evaluation now Overactive Bladder; Hold Detrol for now DVT Px: SCDs for now Code Status: Full Code as per my discussion with patient's son DISPOSITION PT/OT Discharge home today Total time spent on discharge = 35 minutes This includes examination of the patient, discharge planning, medication reconciliation, and communication with other providers. Discharge Instructions Date of Service May 16, 2017. Admission Reason for Admission: Ams, Hypertensive Emegency Discharge Discharge Diagnosis / Problem: Metabolic Encephalopathy-Improved to baseline , Hypertensive Urgency Discharge Goals Goal(s): Prevent Disease Progression Activity Recommendations Activity Limitations: resume your previous activity (Take precaution to avoid fall) . Instructions / Follow-Up Instructions / Follow-Up Dr Adler on 05/20/17 at 11:00AM Current Hospital Diet Patient's current hospital diet: Diabetes Type 2 Diet, AHA Diet (Heart Healthy) Discharge Diet Recommended Diet: Diabetes Type 2 Diet Pending Studies Studies pending at discharge: no Laboratory Results Hemoglobin A1c Test 05/12/17 06:25 Range/Units Estimated Average Glucose 146 mg/dl Hemoglobin A1c 6.7 H 4.5-5.6 % Medical Emergencies . Who to Call and When: Medical Emergencies: If at any time you feel your situation is an emergency, please call 911 immediately. . Non-Emergent Contact Non-Emergency issues call your: Primary Care Provider . Past History Medical & Surgical History: (1) Benign hypertension (2) Depression (3) Diabetes mellitus (4) Chronic congestive heart failure (5) Altered mental status (6) Hypertensive emergency . "Provider Documentation" section prepared by Nilton Lucia. . VTE Core Measure Inpt VTE Proph given/why not?: SCD's <Electronically signed by Nilton Lucia M.D.> Signed: 05/16/17 1224 Additional Copies To Harjit Adler M.D.
== END 2017-05-16 13:41 | disposition home health service (06) | DRG 871 ==
LOC: EDBD 22:02 → C.EDC 22:03 → C.2T 05-11 00:23 → ENRESERV 05-11 00:44 → C.MS2W 05-13 19:25
PROVIDERS: ADMIT Internal Medicine; ATTEND Internal Medicine
DX: A41.9 Sepsis, unspecified organism (principal); G93.40 Encephalopathy, unspecified; Z90.49 Acquired absence of other specified parts of digestive tract; I12.9 Hypertensive chronic kidney disease with stage 1 through stage 4 chronic kidney disease, or unspecified chronic kidney disease; F32.9 Major depressive disorder, single episode, unspecified; E11.9 Type 2 diabetes mellitus without complications; E78.5 Hyperlipidemia, unspecified; Z79.01 Long term (current) use of anticoagulants; I13.10 Hypertensive heart and chronic kidney disease without heart failure, with stage 1 through stage 4 chronic kidney disease, or unspecified chronic kidney disease; H70.90 Unspecified mastoiditis, unspecified ear; N18.3 Chronic kidney disease, stage 3 (moderate); I25.2 Old myocardial infarction; Z79.82 Long term (current) use of aspirin

== ENCOUNTER 2017-05-18 03:57 | Emergency (ER) | payer OTHER ==
[~2017-05-18] VITALS: Ht 162.6 cm; Wt 101.7 kg
[~2017-05-18 03:57] MED LIST changes: +ASPI325T39 PO; +DOCU100C31 PO; +DTRSR4 PO; +FURO-85 PO; -HMLI SC; -HYDR25TA4 PO; +INSDGIPEN SC; -INSUINJ4 SQ; +LCTX PO; +LVQ500 PO; +MCRK20 PO; -OXYC-57 PO; -OXYC1CAP5 PO; -PANT1TAB48 PO; +PRLSR20 PO; +SULF-183 PO; +VLTG EXT
[2017-05-18 04:00] VITALS: TEMP 36.7; Ht 162.6 cm; Wt 101.7 kg
[2017-05-18] MEDS ORDERED: voltaren gel EXT (04:31)
[2017-05-18] MEDS ORDERED: LCTX PO (04:32)
[2017-05-18] MEDS ORDERED: LEVO1TAB33 PO (04:33)
[2017-05-18] MEDS ORDERED: SULF-183 PO (04:35)
[2017-05-18 04:48] LABS: URINE APPEARANCE CLEAR (CLEAR); URINE BILIRUBIN NEG (NEG); URINE COLOR YELLOW; URINE NITRITE NEG (NEG); URINE SPECIFIC GRAVITY 1.005 (1.000-1.030); UROBILINOGEN NEG (NEG)
[2017-05-18 04:54] LABS: MANUAL MICROSCOPIC REQUIRED? NO; REVIEW REQ? NO
[2017-05-18 04:56] LABS: BASO % 0.2 %; BASO ABS # 0.02 K/uL (0-0.2); COMPLETE YES; EOS % 1.4 %; HEMATOCRIT 35.8 % (37-47); IG% 0.4 %; LYMPH % 23.4 %; LYMPH ABS # 2.59 K/uL (1.2-3.4); MEAN CELL VOLUME 90.9 fL (80-100); MEAN CORPUSCULAR HEMOGLOBIN 30.7 pg (25-34); MEAN CORPUSCULAR HGB CONC 33.8 g/dl (32-36); MEAN PLATELET VOLUME 10.7 fL (7.4-10.4); MONO % 9.8 %; NEUT % 64.8 %; PLATELET COUNT 231 K/uL (130-400); RED BLOOD COUNT 3.94 M/uL (4.2-5.4); WHITE BLOOD COUNT 11.05 K/uL (4.8-10.8)
[2017-05-18 05:37] LABS: ALB/GLOB RATIO 0.8 (0.9-2); ALKALINE PHOSPHATASE 83 U/L (45-117); ALT/SGPT 18 U/L (12-78); AST/SGOT 18 U/L (15-37); BLOOD UREA NITROGEN 18 mg/dl (7-18); CALCIUM 8.8 mg/dl (8.5-10.1); CARBON DIOXIDE 26 mmol/L (21-32); CHLORIDE 105 mmol/L (98-107); CREATININE 1.31 mg/dl (0.60-1.20); GLUCOSE 118 mg/dl (70-99); POTASSIUM 4.5 mmol/L (3.5-5.1); SODIUM 138 mmol/L (136-145)
--- NOTE | 2017-05-18 05:38 | EMERGENCY ROOM VISIT NOTE ---
History Report prepared by Prema: Brain Coy Under the Supervision of: Dr. Ladan Covington D.O. First contact with patient: 04:08 Chief Complaint: BILATERAL LEG WEAKNESS Stated Complaint: LEG WEAKNESS/DIFFIUCLTY AMBULATING History of Present Illness The patient is an 86 year old female who presents to the Emergency Room with complaints of a sudden dizzy spell occurring yesterday and a fall afterwards as well. The patient states that she was not able to walk, and she fell on her side and hit her head and blacked out. She is currently complaining of neck pain , right ankle pain, and a headache. She states that she was recently discharged from the hospital, and she lives by herself, though her son and director of student aid visit her. She additionally notes that she was awake all night, and she has been having difficulty sleeping recently. She states that she does not wear oxygen at home, and she took all of her medications tonight. Pt denies change in vision , fevers, chest pain, shortness of breath, nausea, vomiting, diarrhea, pain with urination, and melena. Source of History: patient Onset: yesterday morning Position: other (global) Quality: other (dizziness and fall) Timing: other (sudden) Associated Symptoms: + headache, + neck pain Review of Systems See HPI for pertinent positives & negatives. A total of 10 systems reviewed and were otherwise negative. Past Medical & Surgical Medical Problems: (1) Benign hypertension (2) Cholecystectomy (3) Chronic congestive heart failure (4) Depression (5) Diabetes mellitus (6) Hyperlipidemia (7) Myocardial infarction (8) renal disease Social History Smoking Status: Unknown if Ever Smoked Alcohol Use: none Drug Use: none Marital Status: Housing Status: lives alone Occupation Status: retired Current/Historical Medications Scheduled Acetaminophen (Tylenol), 650 MG PO Q4H Aspirin (Aspirin Ec), 325 MG PO DAILY Diclofenac Sod (Voltaren), 1 APPLN EXT BID Docusate Sodium (Docusate Sodium), 100 MG PO BID Insulin Glargine (Lantus Solostar), 16 UNITS SC QAM Insulin Glargine (Lantus Solostar), 18 UNITS SC QPM Lactobacillus Acidophilus (Lactinex), 2 TABS PO BID Levofloxacin (Levaquin), 500 MG PO DAILY Lisinopril (Zestril), 20 MG PO BID Lorazepam (Ativan), 0.5 MG PO Q6H Multivitamins/Minerals (Mvi With Minerals), 1 TAB PO DAILY Omeprazole (Prilosec), 20 MG PO DAILY Potassium Chloride (Klor-Con M20), 20 MEQ PO DAILY Repaglinide (Prandin), 4 MG PO AC Simvastatin (Zocor), 40 MG PO QPM Sulfamethoxazole-Trimethoprim (Smz-Tmp Ds), 1 TAB PO Q12 Tolterodine Tartrate (Detrol LA), 4 MG PO DAILY [voltaren gel], 100 GM EXT BID Scheduled PRN Furosemide (Lasix), 20 MG PO DAILY PRN for PRN Allergies Coded Allergies: No Known Allergies (Verified , 05/18/17) Physical Exam Vital Signs Date Time Temp Pulse Resp B/P (MAP) Pulse Ox O2 Delivery O2 Flow Rate FiO2 05/18/17 14:10 05/18/17 13:39 86 29 93 05/18/17 13:24 89 25 94 05/18/17 13:09 89 27 94 05/18/17 13:04 90 31 94 05/18/17 13:01 141/111 05/18/17 12:34 88 27 97 05/18/17 12:31 91 05/18/17 12:04 93 25 96 05/18/17 11:59 84 22 95 05/18/17 11:44 84 24 97 05/18/17 11:29 84 24 95 05/18/17 11:14 85 29 96 05/18/17 11:01 157/134 05/18/17 10:59 83 21 99 05/18/17 10:44 83 28 96 05/18/17 10:39 84 25 98 05/18/17 10:24 86 24 97 05/18/17 10:09 86 28 96 05/18/17 10:01 166/81 05/18/17 09:54 96 28 96 05/18/17 09:39 84 27 95 05/18/17 09:34 156/117 05/18/17 09:20 86 26 97 05/18/17 09:02 157/100 05/18/17 08:50 88 28 96 05/18/17 08:28 89 05/18/17 08:20 90 25 97 05/18/17 08:01 161/96 05/18/17 07:50 91 29 90 05/18/17 07:20 106 28 94 05/18/17 07:15 95 23 93 05/18/17 07:01 160/88 05/18/17 07:00 93 27 94 05/18/17 06:45 96 17 94 05/18/17 06:30 84 20 162/85 94 Nasal Cannula 3.0 05/18/17 05:21 106 20 163/89 95 Nasal Cannula 3.0 05/18/17 04:25 90 05/18/17 04:00 36.7 89 24 162/82 95 Nasal Cannula 3.0 Physical Exam GENERAL: alert, well appearing, well nourished, no distress, non-toxic, obese EYE EXAM: normal conjunctiva, PERRL and EOM's grossly intact OROPHARYNX: no exudate, no erythema, lips, buccal mucosa, and tongue normal and mucous membranes are mildly dry NECK: supple, no nuchal rigidity, no adenopathy, no midline tenderness or step- off LUNGS: Lung sounds are diminished. No wheezes, rhonchi, or rales. Normal chest wall mechanics HEART: no murmurs, S1 normal and S2 normal ABDOMEN: abdomen soft, non-tender, normo-active bowel sounds, no masses, no rebound or guarding. BACK: Back is symmetrical on inspection and there is no deformity, no midline tenderness, no CVA tenderness. PELVIS: Stable. SKIN: no rashes and no bruising UPPER EXTREMITIES: upper extremities are grossly normal. LOWER EXTREMITIES: Bilateral 1-2+ edema. Legs wrapped in mag wraps. Decreased range of motion in the right ankle secondary to pain. No obvious deformity. NEURO EXAM: Normal sensorium, cranial nerves II-XII grossly intact, normal speech, no gross weakness of arms, no gross weakness of legs. Gross sensation intact. Medical Decision & Procedures ER Provider Diagnostic Interpretation: Radiology results have been interpreted by the radiologist and reviewed by me. PELVIS 1 OR 2 VIEW ROUTINE CLINICAL HISTORY: Pelvic pain status post trauma COMPARISON STUDY: No previous studies for comparison. FINDINGS: The study is limited from a technical standpoint. No acute pelvic fractures are visualized. There is no SI joint diastases. There is no symphysis pubis diastases. Degenerative changes are present within the lower lumbar spine. There is an age-indeterminate L4 compression deformity. IMPRESSION: 1. Technically limited study 2. Suspected age-indeterminate L4 vertebral body fracture 3. No pelvic fractures identified. If symptoms persist, additional imaging should be considered due to the technically limited nature of the current examination Electronically signed by: Abhishek Castillo M.D. 05/18/2017 6:32 AM Dictated Date/Time: 05/18/2017 6:[address] HEAD WITHOUT CONTRAST (CT) CLINICAL HISTORY: Head pain status post trauma COMPARISON STUDY: 05/10/2017 TECHNIQUE: Axial CT of the brain is performed from the vertex to the skull base. IV contrast was not administered for this examination. A dose lowering technique was utilized adhering to the principles of ALARA. CT DOSE: 1556.09 mGy.cm FINDINGS: No intra or extra-axial mass lesions are visualized. There is no CT evidence of acute cortical infarction. There is no evidence of midline shift. There is no acute hemorrhage. No calvarial fractures are visualized. There are patchy white matter hypodensities likely on a small vessel basis. There is no evidence of pathologic ventricular dilatation. There is opacification of both mastoid air cells with bony erosive changes involving the anterior spring with communication into the external auditory canals. There is also opacification of the right middle ear cavity. IMPRESSION: 1. No acute intracranial findings 2. Soft tissue opacification of both mastoids with bony erosive changes involving the anterior spring extending into the external auditory canals. There is also opacification of the right middle ear cavity. Electronically signed by: Abhishek Castillo M.D. 05/18/2017 6:29 AM Dictated Date/Time: 05/18/2017 6:26 AM CHEST ONE VIEW PORTABLE CLINICAL HISTORY: trauma COMPARISON STUDY: 05/11/2017 FINDINGS: The heart is enlarged. There is aortic tortuosity/ectasia. There is no overt failure. There is no focal pulmonary consolidation. There are stable right basilar opacities, likely atelectatic IMPRESSION: No significant change. Persistent cardiomegaly. Stable right basal airspace opacities likely atelectatic. Electronically signed by: Abhishek Castillo M.D. 05/18/2017 6:34 AM Dictated Date/Time: 05/18/2017 6:33 AM CERVICAL SPINE W/O CT DOSE: HISTORY: Trauma neck pain, trauma TECHNIQUE: Multiaxial CT images of the cervical spine were performed and reformatted in the sagittal and coronal plane without the use of contrast. A dose lowering technique was utilized adhering to the principles of ALARA. COMPARISON: None. FINDINGS: Findings generalized degenerative change throughout the entire cervical region. Osteoporosis. No evidence for an acute compression deformity. Degenerative changes C1-C2 complex. IMPRESSION: Findings of generalized degenerative change. Osteoporosis. No acute bony abnormality. The above report was generated using voice recognition software. It may contain grammatical, syntax or spelling errors. Electronically signed by: Bill Whitehead M.D. 05/18/2017 6:50 AM Dictated Date/Time: 05/18/2017 6:42 AM R ANKLE MIN 3 VIEWS ROUTINE CLINICAL HISTORY: Right ankle pain status post trauma COMPARISON: None. DISCUSSION: The bones are osteopenic. There is a nondisplaced oblique fracture of the distal fibula. The ankle mortise appears intact on these nonstress views. No tibial fractures are visualized. There is a plantar calcaneal spur. IMPRESSION: Nondisplaced distal fibular fracture Electronically signed by: Abhishek Castillo M.D. 05/18/2017 6:31 AM Dictated Date/Time: 05/18/2017 6:30 AM Laboratory Results 05/18/17 04:42 Red Blood Count 3.94, Mean Corpuscular Volume 90.9, Mean Corpuscular Hemoglobin 30.7, Mean Corpuscular Hemoglobin Concent 33.8, Mean Platelet Volume 10.7, Neutrophils (%) (Auto) 64.8, Lymphocytes (%) (Auto) 23.4, Monocytes (%) (Auto) 9.8, Eosinophils (%) (Auto) 1.4, Basophils (%) (Auto) 0.2, Neutrophils # (Auto) 7.17, Lymphocytes # (Auto) 2.59, Monocytes # (Auto) 1.08, Eosinophils # (Auto) 0.15, Basophils # (Auto) 0.02 05/18/17 04:42 Test 05/18/17 04:25 05/18/17 04:42 05/18/17 04:46 Urine Color YELLOW Urine Appearance CLEAR (CLEAR) Urine pH 6.0 (4.5-7.5) Urine Specific [place] 1.005 (1.000-1.030) Urine Protein TRACE (NEG) Urine Glucose (UA) NEG (NEG) Urine Ketones NEG (NEG) Urine Occult Blood NEG (NEG) Urine Nitrite NEG (NEG) Urine Bilirubin NEG (NEG) Urine Urobilinogen NEG (NEG) Urine Leukocyte Esterase NEG (NEG) Urine WBC (Auto) 0 /hpf (0-5) Urine RBC (Auto) 0-4 /hpf (0-4) Urine Hyaline Casts (Auto) 1-5 /lpf (0-5) Urine Epithelial Cells (Auto) 10-20 /lpf (0-5) Urine Bacteria (Auto) NEG (NEG) White Blood Count 11.05 K/uL (4.8-10.8) Red Blood Count 3.94 M/uL (4.2-5.4) Hemoglobin 12.1 g/dL (12.0-16.0) Hematocrit 35.8 % (37-47) Mean Corpuscular Volume 90.9 fL (80-100) Mean Corpuscular Hemoglobin 30.7 pg (25-34) Mean Corpuscular Hemoglobin Concent 33.8 g/dl (32-36) Platelet Count 231 K/uL (130-400) Mean Platelet Volume 10.7 fL (7.4-10.4) Neutrophils (%) (Auto) 64.8 % Lymphocytes (%) (Auto) 23.4 % Monocytes (%) (Auto) 9.8 % Eosinophils (%) (Auto) 1.4 % Basophils (%) (Auto) 0.2 % Neutrophils # (Auto) 7.17 K/uL (1.4-6.5) Lymphocytes # (Auto) 2.59 K/uL (1.2-3.4) Monocytes # (Auto) 1.08 K/uL (0.11-0.59) Eosinophils # (Auto) 0.15 K/uL (0-0.5) Basophils # (Auto) 0.02 K/uL (0-0.2) RDW Standard Deviation 41.7 fL (36.4-46.3) RDW Coefficient of Variation 12.6 % (11.5-14.5) Immature Granulocyte % (Auto) 0.4 % Immature Granulocyte # (Auto) 0.04 K/uL (0.00-0.02) Anion Gap 7.0 mmol/L (3-11) Est Creatinine Clear Calc Drug Dose 35.1 ml/min Estimated GFR () 42.3 Estimated GFR (Non- 36.5 BUN/Creatinine Ratio 14.0 (10-20) Calcium Level 8.8 mg/dl (8.5-10.1) Total Bilirubin 0.3 mg/dl (0.2-1) Aspartate Amino Transf (AST/SGOT) 18 U/L (15-37) Alanine Aminotransferase (ALT/SGPT) 18 U/L (12-78) Alkaline Phosphatase 83 U/L (45-117) Troponin I < 0.015 ng/ml (0-0.045) Total Protein 7.0 gm/dl (6.4-8.2) Albumin 3.1 gm/dl (3.4-5.0) Globulin 3.9 gm/dl (2.5-4.0) Albumin/Globulin Ratio 0.8 (0.9-2) Chemistry Specimen Hemolysis Bedside Lactic Acid Venous 1.15 mmol/L (0.90-1.70) Laboratory results per my review. Medications Administered Medications (Trade) Dose Ordered Sig/Tawny Route Start Time Stop Time Status Last Admin Dose Admin Sodium Chloride 1,000 ml @ 200 mls/hr Q5H STAT IV 05/18/17 07:02 05/18/17 12:01 DC 05/18/17 07:33 200 MLS/HR Lisinopril (Zestril Tab) 20 mg NOW STAT PO 05/18/17 07:45 05/18/17 07:47 DC 05/18/17 08:56 20 MG Aspirin/Aluminum/ Magnesium/Ca Carb (Ascriptin Tab) 325 mg NOW STAT PO 05/18/17 07:45 05/18/17 07:47 DC 05/18/17 08:56 325 MG Levofloxacin (Levaquin Tab) 500 mg NOW STAT PO 05/18/17 07:48 05/18/17 07:49 DC 05/18/17 08:57 500 MG Trimethoprim/ Sulfamethoxazole (Septra Ds 800/ 160MG Tab) 1 tab NOW STAT PO 05/18/17 07:48 05/18/17 07:49 DC 05/18/17 08:57 1 TAB Acetaminophen (Tylenol Tab) 1,000 mg NOW STAT PO 05/18/17 12:06 05/18/17 12:07 DC 05/18/17 12:13 1,000 MG ECG Indication: other (dizziness) Rate (beats per minute): 95 Rhythm: sinus rhythm Findings: no acute ischemic change, left axis deviation, no ectopy, other (Low voltage. Normal interval) ED Course 0408: The patient was evaluated in room B9. A complete history and physical exam was performed. 0451: I had a conversation with the patient's family. They state that the patient refused rehab when discharged two days ago. Yesterday she was using her walker, and today she was walking normally. He was complaining of feeling light headed and refused to walk unless people were assisting her with her walker. He said that she said her legs were feeling weak and started to fall, but the son caught her. He said that he checked her blood sugar twice, and they were normal. He made sure that she took her medication and ate some food. He states that she seemed okay today except she was somewhat anxious. 0635: Case mgmt aware of condition and son's desire for pt to be placed in rehab. Medical Decision Differential diagnosis: Etiologies such as fracture, dislocation, intra-abdominal, pneumothorax, intrathoracic , intracranial, neurologic, as well as other traumatic pathologies were entertained. Pt poor historian and per son with anxiety and ambulatory dysfunction. Right fibula fx noted, nondisplaced, no other trauma noted and low suspicion for additional occult traumatic injury. Labs reassuring. Pt still taking antibiotics she was prescribed at [facility]. VS stable. I feel pt can be placed into rehab. Case mgmt aware and working towards this with family. 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 Medication Reconcilliation Current Medication List: was personally reviewed by me Blood Pressure Screening Patient's blood pressure: Elevated blood pressure Blood pressure disposition: Elevated BP felt to be situational Impression Primary Impression: Leg weakness Additional Impressions: Lightheadedness Fibula fracture Scribe Attestation The scribe's documentation has been prepared under my direction and personally reviewed by me in its entirety. I confirm that the note above accurately reflects all work, treatment, procedures, and medical decision making performed by me. Departure Information Referrals Harjit Adler M.D. (PCP) Patient Instructions My [facility] Problem Qualifiers Primary Impression: Leg weakness Laterality: bilateral Qualified Codes: R29.898 - Other symptoms and signs involving the musculoskeletal system Additional Impressions: Fibula fracture Encounter type: initial encounter Fibula location: distal Fracture type: closed Fracture morphology: unspecified fracture morphology Laterality: right Qualified Codes: S82.831A - Other fracture of upper and lower end of right fibula, initial encounter for closed fracture
--- NOTE | 2017-05-18 06:31 | DIAGNOSTIC IMAGING REPORT ---
CT HEAD WITHOUT CONTRAST (CT) CLINICAL HISTORY: Head pain status post trauma COMPARISON STUDY: 05/10/2017 TECHNIQUE: Axial CT of the brain is performed from the vertex to the skull base. IV contrast was not administered for this examination. A dose lowering technique was utilized adhering to the principles of ALARA. CT DOSE: 1556.09 mGy.cm FINDINGS: No intra or extra-axial mass lesions are visualized. There is no CT evidence of acute cortical infarction. There is no evidence of midline shift. There is no acute hemorrhage. No calvarial fractures are visualized. There are patchy white matter hypodensities likely on a small vessel basis. There is no evidence of pathologic ventricular dilatation. There is opacification of both mastoid air cells with bony erosive changes involving the anterior spring with communication into the external auditory canals. There is also opacification of the right middle ear cavity. IMPRESSION: 1. No acute intracranial findings 2. Soft tissue opacification of both mastoids with bony erosive changes involving the anterior spring extending into the external auditory canals. There is also opacification of the right middle ear cavity. Electronically signed by: Abhishek Castillo M.D. 05/18/2017 6:29 AM Dictated Date/Time: 05/18/2017 6:26 AM
--- NOTE | 2017-05-18 06:32 | DIAGNOSTIC IMAGING REPORT ---
R ANKLE MIN 3 VIEWS ROUTINE CLINICAL HISTORY: Right ankle pain status post trauma COMPARISON: None. DISCUSSION: The bones are osteopenic. There is a nondisplaced oblique fracture of the distal fibula. The ankle mortise appears intact on these nonstress views. No tibial fractures are visualized. There is a plantar calcaneal spur. IMPRESSION: Nondisplaced distal fibular fracture Electronically signed by: Abhishek Castillo M.D. 05/18/2017 6:31 AM Dictated Date/Time: 05/18/2017 6:30 AM
--- NOTE | 2017-05-18 06:34 | DIAGNOSTIC IMAGING REPORT ---
PELVIS 1 OR 2 VIEW ROUTINE CLINICAL HISTORY: Pelvic pain status post trauma COMPARISON STUDY: No previous studies for comparison. FINDINGS: The study is limited from a technical standpoint. No acute pelvic fractures are visualized. There is no SI joint diastases. There is no symphysis pubis diastases. Degenerative changes are present within the lower lumbar spine. There is an age-indeterminate L4 compression deformity. IMPRESSION: 1. Technically limited study 2. Suspected age-indeterminate L4 vertebral body fracture 3. No pelvic fractures identified. If symptoms persist, additional imaging should be considered due to the technically limited nature of the current examination Electronically signed by: Abhishek Castillo M.D. 05/18/2017 6:32 AM Dictated Date/Time: 05/18/2017 6:31 AM
--- NOTE | 2017-05-18 06:36 | DIAGNOSTIC IMAGING REPORT ---
CHEST ONE VIEW PORTABLE CLINICAL HISTORY: trauma COMPARISON STUDY: 05/11/2017 FINDINGS: The heart is enlarged. There is aortic tortuosity/ectasia. There is no overt failure. There is no focal pulmonary consolidation. There are stable right basilar opacities, likely atelectatic IMPRESSION: No significant change. Persistent cardiomegaly. Stable right basal airspace opacities likely atelectatic. Electronically signed by: Abhishek Castillo M.D. 05/18/2017 6:34 AM Dictated Date/Time: 05/18/2017 6:33 AM
--- NOTE | 2017-05-18 06:52 | DIAGNOSTIC IMAGING REPORT ---
CERVICAL SPINE W/O CT DOSE: HISTORY: Trauma neck pain, trauma TECHNIQUE: Multiaxial CT images of the cervical spine were performed and reformatted in the sagittal and coronal plane without the use of contrast. A dose lowering technique was utilized adhering to the principles of ALARA. COMPARISON: None. FINDINGS: Findings generalized degenerative change throughout the entire cervical region. Osteoporosis. No evidence for an acute compression deformity. Degenerative changes C1-C2 complex. IMPRESSION: Findings of generalized degenerative change. Osteoporosis. No acute bony abnormality. The above report was generated using voice recognition software. It may contain grammatical, syntax or spelling errors. Electronically signed by: Bill Whitehead M.D. 05/18/2017 6:50 AM Dictated Date/Time: 05/18/2017 6:42 AM
[2017-05-18] MEDS ORDERED: SODIUM CHLORIDE 0.9% 1000ML 1,000 ML IV STA (07:02)
--- NOTE | 2017-05-18 07:42 | EMERGENCY ROOM VISIT NOTE ---
ED Visit Note First contact with patient: 07:42
[2017-05-18] MEDS ORDERED: LISINOPRIL 20 MG TAB PO STA (07:45)
[2017-05-18] MEDS ORDERED: ASPIRIN/ALUM/MAGNES/CAL CARB 325 MG TAB PO STA (07:45)
[2017-05-18] MEDS ORDERED: SULFAMETHOXAZOLE/TRIMETHOPRIM DS 800/160MG TAB PO STA (07:48)
[2017-05-18] MEDS ORDERED: LEVOFLOXACIN 250 MG TAB PO STA (07:48)
--- NOTE | 2017-05-18 09:03 | EMERGENCY ROOM VISIT NOTE ---
ED Visit Note First contact with patient: 07:42 I received this patient at change of shift signout from Dr. Covington. Please see her note for complete history and physical. The patient is an 86-year-old female who presented to the emergency department for an evaluation of a near fall and generalized weakness. The patient was unable to ambulate. The patient received a workup overnight. She was found to have a distal fibular fracture in the right lower extremity which was felt to be due to the near fall and twisting of her lower extremity. At this point the patient has significant difficulty ambulate in. Currently the emergency Department shoe parts caser is attempting to place the patient in rehabilitation. I was asked to discuss this case with the on-call orthopedic physician. The patient chose Dr. Roy. The patient follow-up as an outpatient with Dr. Roy. The patient was resting comfortably on my evaluation. I discussed the plan with the patient's family members and they were agreeable. At this time we would recommend nonweightbearing status especially on the right lower extremity given the nondisplaced fracture. This can be evaluated further when she follows up with the orthopedic physician.
[2017-05-18] MEDS ORDERED: ACETAMINOPHEN 500 MG TAB PO STA (12:06)
[2017-05-18 13:01] VITALS: BP 141/111
[2017-05-18 13:39] VITALS: PULSE 86; O2SAT 93
[2017-05-23] MEDS ORDERED: PANT40TA PO (10:04)
[2017-05-23] MEDS ORDERED: SENN8.6T36 PO (10:04)
[2017-05-23] MEDS ORDERED: ENOX30IN4 SQ (10:04)
[2017-05-23] MEDS ORDERED: TRAM-10 PO ×2 (10:04)
[2017-05-23] MEDS ORDERED: NVLGI/PEN SQ (10:04)
== END 2017-05-18 14:12 ==
LOC: EDBD 03:57 → C.EDB 03:58
DX: S09.90XA Unspecified injury of head, initial encounter (principal); W19.XXXA Unspecified fall, initial encounter; M54.2 Cervicalgia; R51 Headache; R26.2 Difficulty in walking, not elsewhere classified; S82.891D Other fracture of right lower leg, subsequent encounter for closed fracture with routine healing; X58.XXXD Exposure to other specified factors, subsequent encounter; M81.0 Age-related osteoporosis without current pathological fracture; I51.7 Cardiomegaly; F32.9 Major depressive disorder, single episode, unspecified; E11.9 Type 2 diabetes mellitus without complications; I10 Essential (primary) hypertension; E78.5 Hyperlipidemia, unspecified; N28.9 Disorder of kidney and ureter, unspecified; Z79.01 Long term (current) use of anticoagulants; I25.2 Old myocardial infarction